=== PATIENT | male | born 1935 | race Caucasian/White ===

== ENCOUNTER 2020-04-25 05:28 | Outpatient (RCR) | payer MEDICARE ==
[~2020-04-25] VITALS: Ht 172.7 cm; Wt 67.3 kg
[~2020-04-25 05:28] MED LIST: BISA10EN RC; BTH10T PO; CELE50CA PO; DIAZ5TAB3 PO; ESZO2TAB31 PO; GABA300C PO; GBPN600T PO; HYDR-34 PO; HYDR-3817 PO; LOSA50TA63 PO; MULT-1056 PO; OLME20TA5; PANT40TA52 PO; SENN1TAB76 PO; SULF-222 PO; SULFA; TEMA30CA PO; TMSL.4C PO
== END 2020-04-25 09:25 | disposition home or self-care (01) ==
LOC: PREOP 05:28
PROVIDERS: ATTEND Internal Medicine
DX: Z01.812 Encounter for preprocedural laboratory examination (principal); Z20.828 Contact with and (suspected) exposure to other viral communicable diseases
CPT/HCPCS: 87635

== ENCOUNTER 2020-04-27 08:59 | Day surgery (SDC) | payer MEDICARE ==
--- NOTE | 2020-04-24 11:33 | HISTORY AND PHYSICAL ---
DATE OF SERVICE: EGD HISTORY AND PHYSICAL HISTORY OF PRESENT ILLNESS: The patient is an 84-year-old white male referred by Dr. Pollard due to persistent reflux sounding symptoms despite pantoprazole 40 mg q.a.m. daily. There has been a little improvement with recent increased to b.i.d., but he still reports some occasional pain on swallowing and some burning epigastric discomfort that radiates up into the chest. He rarely ever misses a dose. He has not had a previous EGD evaluation that he recalls. He predominantly reports afternoon and evening symptoms. He is not awaken at night with any burning or choking spells per his report. He reports that his weight has been stable. He has had no bowel habit change and has not noted any melena or bright red blood per rectum. PAST MEDICAL HISTORY: Significant for hypertension with no known history of pulmonary or vascular disease per his report. He has had history of significant generalized osteoarthritis that has led cervical and lumbar stenosis requiring a previous lumbar and cervical spine surgery. PAST SURGICAL HISTORY: In addition to lumbar and cervical spine surgery, he has had an appendectomy in the past, some abdominal hernia repair and rotator cuff tear repair. MEDICATIONS ON ADMISSION: Include hydrocodone 7.5/325 he takes usually twice daily, gabapentin 600 mg 3 times daily; pantoprazole recently increased from 40 mg daily to 40 mg twice daily. He sometimes takes an ldgy-oja-cqrvbqa sleep medication and is on losartan 50 mg daily. SOCIAL HISTORY: He reports rare alcohol consumption and no past smoking history. 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 FAMILY HISTORY: He is not aware of any family history for GI tract malignancy. REVIEW OF SYSTEMS: CONSTITUTIONAL: Denies weight change, night sweats, chills or fever. PULMONARY: Denies cough, chest congestion, wheezing or shortness of breath. CARDIOVASCULAR: Denies orthopnea, PND, pedal edema or dyspnea on exertion. GASTROINTESTINAL: As noted in the HPI. PHYSICAL EXAMINATION: GENERAL: Reveals a spry elderly white male who appeared to be in no acute distress. VITAL SIGNS: Weight 148.6 pounds, blood pressure 140/100 at the beginning of the interview, 130/88 at the end. HEENT: Unremarkable. Oral cavity reveals no evidence for erythema. CHEST: Clear to auscultation. CARDIOVASCULAR: Reveals a regular rate and rhythm without murmur, S3 or S4. ABDOMEN: Soft, supple. Mild epigastric discomfort to palpation is present without rebound or guarding. No mass or organomegaly is noted. No evidence for abdominal aortic aneurysm is noted to palpation. No bruits are appreciated. EXTREMITIES: Reveal no cyanosis, clubbing or edema. ASSESSMENT AND PLAN: For further investigation of refractory gastroesophageal reflux sounding symptoms, the patient is being set up for EGD evaluation. He is to abstain from nonsteroidal medications and aspirin, which he does not normally take. I thank you for the referral of this pleasant gentleman. Job ID: [id number] DocumentID: [id number] Dictated Date: 04/24/2020 11:02:10 Foam Caster Date: 04/24/2020 11:32:35 Dictated By: TOMMY IGLESIAS MD
[2020-04-27] VITALS (12 sets, daily range): BP systolic 136–179; BP diastolic 71–93
[~2020-04-27] VITALS: Ht 172.7 cm; Wt 67.3 kg
[2020-04-27] MEDS ORDERED: D5 LR IV SOLUTION 1,000 ML IV ONE (09:15)
--- NOTE | 2020-04-27 09:22 | Pre-Op Note & Conscious Sedat ---
Pre-Operative Progress Note H&P Reviewed The H&P was reviewed, patient examined and no changes noted. Date H&P Reviewed: Apr 27, 2020 Time H&P Reviewed: 09:22 Conscious Sedation Pre-Proced ASA Score 2 For ASA 3 and 4: Consider anesthesia and medical clearance. Also, for patients with a history of failed moderate sedation consider anesthesia. Airway Lungs Heart ASA score ASA 1: a normal healthy patient ASA 2: a patient with a mild systemic disease (mid diabetes, controlled hypertension, obesity ASA 3: a patient with a severe systemic disease that limits activity (angina, COPD, prior Myocardial infarction) ASA 4: a patient with an incapacitating disease that is a constant threat to life (CHF, renal failure) ASA 5: a moribund patient not expected to survive 24 hrs. (ruptured aneurysm) ASA 6: a declared brain- patient whose organs are being harvested. For emergent operations, add the letter E after the classification Mallampati Classification Grade 2 Sedation Plan Analgesia, Amnesia, Plan communicated to team members, Discussed options with patient/fam, Discussed risks with patient/fam The patient is an appropriate candidate to undergo the planned procedure, sedation, and anesthesia. The patient immediately re-assessed prior to indication. TOMMY IGLESIAS MD Apr 27, 2020 09:22
[2020-04-27] MEDS ORDERED: D5 LR IV SOLUTION 1,000 ML IV STA (09:27)
[2020-04-27] MEDS ORDERED: MIDAZOLAM 5 MG/5 ML (VERSED) VIAL IV ONE (09:30)
[2020-04-27] MEDS ORDERED: fentaNYL INJECTION 100 MCG/2 ML AMP IVP ONE (09:30)
[2020-04-27] MEDS ORDERED: HURRICAINE EXT TUBE (BENZOCAINE) XX PRN (09:30)
[2020-04-27] MEDS ORDERED: LIDOCAINE JELLY 2% 6 ML SYRINGE ONE (09:53)
[2020-04-27] MEDS ORDERED: MIDAZOLAM 5 MG/5 ML (VERSED) VIAL ONE (09:53)
[2020-04-27] MEDS ORDERED: fentaNYL INJECTION 100 MCG/2 ML AMP ONE (09:53)
[2020-04-27] MEDS ORDERED: HURRICAINE EXT TUBE (BENZOCAINE) ONE (09:53)
--- NOTE | 2020-04-27 16:15 | OPERATIVE REPORT ---
DATE OF SERVICE: EGD SUMMARY INDICATION FOR THE PROCEDURE: EGD was performed for evaluation of the reflux symptoms refractory to proton pump inhibitor therapy. DESCRIPTION OF PROCEDURE: The endoscope was inserted in the oral cavity and under direct visualization, esophagus was intubated. The endoscope was passed down the esophagus through the stomach into the second portion of the duodenum. A careful inspection was made as the endoscope was withdrawn. The patient tolerated the procedure well. FINDINGS: The posterior pharynx, epiglottis, arytenoid aperture and true and false vocal folds were unremarkable to visual inspection. The proximal and mid esophagus were unremarkable. There is a small to medium size hiatal hernia present without evidence for erosive esophagitis or evidence for Forte's change. The cardia and fundus of the stomach were unremarkable. There was some antral erythema present without evidence for ulceration. The pylorus, the pyloric channel, the duodenal bulb and second portion of the duodenum were unremarkable with no evidence for peptic ulcer disease. ASSESSMENT: 1. Small moderate size hiatal hernia was present with no evidence for erosive esophagitis. 2. Antral erythema was present. A biopsy was obtained for histopathology and Helicobacter evaluation. The patient reports he is most troubled by belching in the shower for which air swallowing is most likely. As he does have a history of back pain and severe osteoarthritis, he was advised that he try bathing in place of showering and may look into a Jacuzzi tub. Thank you for the referral of this pleasant gentleman, reassured by today's findings. Job ID: [id number] DocumentID: [id number] Dictated Date: 04/27/2020 11:18:48 [employer] Date: 04/27/2020 16:13:49 Dictated By: TOMMY IGLESIAS MD [facility]
== END 2020-04-27 11:20 | disposition home or self-care (01) ==
LOC: ENDO 08:59
PROVIDERS: ATTEND Internal Medicine
DX: K29.50 Unspecified chronic gastritis without bleeding (principal); B96.81 Helicobacter pylori [H. pylori] as the cause of diseases classified elsewhere; K44.9 Diaphragmatic hernia without obstruction or gangrene; K21.9 Gastro-esophageal reflux disease without esophagitis; I10 Essential (primary) hypertension; M15.9 Polyosteoarthritis, unspecified; M48.02 Spinal stenosis, cervical region; M48.061 Spinal stenosis, lumbar region without neurogenic claudication; Z79.899 Other long term (current) drug therapy
CPT/HCPCS: 88305; 88342

== ENCOUNTER 2021-09-11 12:26 | Observation (INO) | payer MEDICARE ==
[~2021-09-11] VITALS: Ht 167.7 cm; Wt 65.9 kg
[2021-09-11] MEDS ORDERED: PATIENT MAY USE OWN MEDS, ALL PO SCH (13:00)
[2021-09-11] MEDS ORDERED: VANCOMYCIN INJECTION 0.1 MG in NS (IVPB) 250 ML IV SCH (13:00)
[2021-09-11] MEDS ORDERED: HYDROcodone/APAP 5 MG/325 MG (LORTAB) TAB PO PRN (13:00)
[2021-09-11] MEDS ORDERED: ONDANSETRON 4 MG/2 ML (SDV) Z0FRAN IV PRN (13:00)
[2021-09-11] MEDS ORDERED: CATHETER FLUSH 10 ML SYR IV PRN (13:15)
[2021-09-11] MEDS: MEROPENEM 1,000 MG in NS (IVPB) 100 ML IV SCH ×2 (13:32→21:09)
[2021-09-11] MEDS: ENOXAPARIN 40 MG/0.4 ML (LOVENOX) SYR SC SCH (13:33)
[2021-09-11] MEDS: NS IV 1000 ML 1,000 ML IV SCH ×2 (13:35→21:09)
[2021-09-11 13:38] LABS: BASOPHILS # (AUTO) 0.1 10^3/uL (0.0-0.1); BASOPHILS % (AUTO) 1 % (0-10); EOSINOPHILS # (AUTO) 0.4 10^3/uL (0.0-0.3); EOSINOPHILS % (AUTO) 3 % (0-10); HEMATOCRIT 42 % (40-54); HEMOGLOBIN 13.3 g/dL (13.3-17.7); LYMPHOCYTES # (AUTO) 0.5 10^3/uL (1.0-4.0); LYMPHOCYTES % (AUTO) 4 % (12-44); MEAN CORPUSCULAR HEMOGLOBIN 29 pg (25-34); MEAN CORPUSCULAR HGB CONC 32 g/dL (32-36); MEAN CORPUSCULAR VOLUME 92 fL (80-99); MEAN PLATELET VOLUME 9.4 fL (9.0-12.2); MONOCYTES # (AUTO) 1.5 10^3/uL (0.0-1.0); MONOCYTES % (AUTO) 12 % (0-12); NEUTROPHILS # (AUTO) 9.4 10^3/uL (1.8-7.8); NEUTROPHILS % (AUTO) 79 % (42-75); PLATELET COUNT 297 10^3/uL (130-400); WHITE BLOOD COUNT 11.8 10^3/uL (4.3-11.0)
[2021-09-11 14:03] LABS: ALBUMIN 3.4 GM/DL (3.2-4.5); BILIRUBIN,TOTAL 0.5 MG/DL (0.1-1.0); CALCIUM 8.8 MG/DL (8.5-10.1); CREATININE SERUM 0.91 MG/DL (0.60-1.30); TOTAL PROTEIN 6.4 GM/DL (6.4-8.2)
[2021-09-11 14:06] LABS: BAND NEUTROPHILS 5 %; LYMPHOCYTES % (MANUAL) 3 %; MONOCYTES % (MANUAL) 12 %; NEUTROPHILS % (MANUAL) 73 %
[2021-09-11 14:07] LABS: BASOPHILS % (MANUAL) 0 %; EOSINOPHILS % (MANUAL) 7 %; RBC MORPH NORMAL
[2021-09-11 14:12] LABS: ERYTHROCYTE SEDIMENTATION RATE 28 MM/HR (0-30)
[2021-09-11] MEDS: NS IV SCH ×2 (14:23→22:12)
[2021-09-11] MEDS: ACYCLOVIR IV SCH ×2 (14:23→22:12)
[2021-09-11] MEDS ORDERED: NAPR220T66 PO (14:56)
[2021-09-11] MEDS ORDERED: BACL10TA PO (14:56)
[2021-09-11] MEDS ORDERED: VANCOMYCIN 1250 MG/NS 250 ML IVPB IV NR ×2 (15:00)
[2021-09-11 16:00] VITALS: BP 190/91
[2021-09-11] MEDS ORDERED: HYDROcodone/APAP 7.5 MG/325 MG (LORTAB, LORCET PLUS) TABLET PO PRN (17:00)
[2021-09-11] MEDS ORDERED: BACLOFEN 10 MG (LIORESAL) TAB PO PRN (17:00)
[2021-09-11] MEDS ORDERED: amLODIPine 5 MG (NORVASC) TAB PO NR (17:00)
[2021-09-11] MEDS ORDERED: cloNIDine 0.1 MG (CATAPRES) TAB PO NR (17:00)
[2021-09-11 17:03] LABS: BILIRUBIN,URINE NEGATIVE (NEGATIVE); CLARITY,URINE CLEAR; COLOR,URINE YELLOW; GLUCOSE, URINE (UA) NEGATIVE (NEGATIVE); KETONES,URINE NEGATIVE (NEGATIVE); LEUKOCYTE ESTERASE ,URINE NEGATIVE (NEGATIVE); NITRITE,URINE NEGATIVE (NEGATIVE); PH,URINE 7.5 (5-9); PROTEIN,URINE NEGATIVE (NEGATIVE)
[2021-09-11 17:12] LABS: BACTERIA,URINE NEGATIVE /HPF; RBC,URINE RARE /HPF; WBC,URINE RARE /HPF
--- NOTE | 2021-09-11 17:44 | Diagnostic Imaging Report ---
INDICATION: Dyspnea. PA and lateral views of the chest are obtained. Comparison is made to study of 01/14/2009. FINDINGS: Heart size and pulmonary vascularity are within normal limits, and the lungs are clear, bilaterally. IMPRESSION: Unremarkable chest. Dictated by: Dictated on workstation # [id number]
[2021-09-11] MEDS ORDERED: diphenhydrAMINE 25 MG TAB (BENADRYL) PO PRN (17:45)
[2021-09-11] MEDS ORDERED: diphenhydrAMINE 25 MG TAB (BENADRYL) PO NR (18:00)
[2021-09-11 19:51] VITALS: BP_SYST 125; BP_SYST 175; BP_DIAS 92
[2021-09-11] MEDS: ESZOPICLONE 2 MG TAB PO SCH (21:03)
[2021-09-11] MEDS: HYDROcodone/APAP 7.5 MG/325 MG (LORTAB, LORCET PLUS) TABLET PO PRN (21:03)
[2021-09-11] MEDS: FAMOTIDINE 20 MG (PEPCID) TABLET PO SCH (21:05)
[2021-09-11] MEDS: GABAPENTIN 600 MG (NEURONTIN) TAB PO SCH (21:06)
[2021-09-11] MEDS: LOSARTAN 50 MG (COZAAR) TAB PO SCH (21:06)
[2021-09-11] MEDS: PANTOPRAZOLE 40 MG (PROTONIX) TAB PO SCH (21:08)
[2021-09-12 00:32] VITALS: BP 165/78
[2021-09-12 04:33] VITALS: BP 121/56
[2021-09-12] MEDS: MEROPENEM 1,000 MG in NS (IVPB) 100 ML IV SCH (05:57)
[2021-09-12] MEDS: ACYCLOVIR IV SCH ×3 (06:31→23:00)
[2021-09-12] MEDS: NS IV SCH ×3 (06:31→23:00)
--- NOTE | 2021-09-12 07:26 | History & Physical ---
MARI GALEAS 09/12/21 0726: History of Present Illness History of Present Illness Reason for visit/HPI Damion Henriquez is a 86y/o M with a PMH of HTN who presents with angioedema and skin lesions on scalp and left hand. Pt reports that he started to develop the lesions on his left hand about 6 days ago. Then 4 days ago he started to get them on his scalp. He was then seen in clinic 3 days ago because he started to develop a fever. States at that time he tested negative for Covid-19. Noticed no changes after that visit until yesterday when he started to develop swelling in his lips and forehead. Was seen in clinic again before being admitted to hospital. Pt reports that the swelling in his lips and forehead have improved since yesterday. Skin lesions he also believes are improving. Denies any pain from lesions or facial swelling. Has recently developed some swelling in his right hand and arm which he believes is from his IV. Denies any pain. Reports that his only medication change in the last few days was that he started using Afrin nasal spray due to sinus congestion. Denies trying any new foods, using any new laundry detergents, or soaps. Has never had any episodes like this in the past. Date of Admission Sep 11, 2021 at 12:33 Date Seen by a Provider: Sep 12, 2021 Time Seen by a Provider: 07:06 I consulted on this patient on 09/12/21 07:18 Attending Physician Jakub Pollard DO Admitting Physician Jakub Pollard DO Consult Allergies and Home Medications Allergies Coded Allergies: No Known Drug Allergies (Unverified , 01/14/09) Patient Home Medication List Home Medication List Reviewed: Yes Baclofen (Baclofen) 10 Mg Tablet, 10 MG PO TID PRN for MUSCLE SPASMS, (Reported) Entered as Reported by: KELSEY WEIR on 09/11/21 3446 Last Action: Continued Eszopiclone (Eszopiclone) 2 Mg Tablet, 2 MG PO HS, (Reported) Entered as Reported by: ASTRID SOLIS on 04/23/20 4318 Last Action: Converted Gabapentin (Gabapentin) 600 Mg Tablet, 600 MG PO TID, (Reported) Entered as Reported by: ASTRID SOLIS on 9/21/20 1528 Last Action: Continued Hydrocodone/Acetaminophen (Hydrocodone-Acetamin 7.5-325) 1 Each Tablet, 1 EACH PO Q8H PRN for PAIN-MODERATE (5-7), (Reported) Entered as Reported by: ASTRID SOLIS on 04/23/201527 Last Action: Continued Losartan Potassium (Losartan Potassium) 50 Mg Tablet, 50 MG PO HS, (Reported) Entered as Reported by: ASTRID SOLIS on 04/23/201527 Last Action: Continued Naproxen Sodium (Aleve) 220 Mg Tablet, 220-440 MG PO Q12H PRN for PAIN-MILD (1- 4), (Reported) Entered as Reported by: KELSEY WEIR on 09/11/21 1456 Last Action: Reviewed Pantoprazole Sodium (Pantoprazole Sodium) 40 Mg Tablet.dr, 40 MG PO BID, (Reported) Entered as Reported by: ASTRID SOLIS on 04/23/201527 Last Action: Continued Discontinued Medications Multivit-Min/FA/Lycopen/Lutein (Men 50 Plus Multivitamin Tab) 1 Each Tablet, 1 EACH PO DAILY, (Reported) Discontinued Reason: No Longer Taking Entered as Reported by: ASTRID SOLIS on 04/23/201527 Last Action: Discontinued Past Mhbkgob-Aozknd-Gdluhk Hx Patient Social History Marrital Status: Employed/Student: retired Tobacco Use?: No Use of E-Cig and/or Vaping dev: No Substance use?: No Alcohol Use?: No Pt feels they are or have been: No Immunizations Up To Date Date of Influenza Vaccine: Apr 11, 2021 First/Initial COVID19 Vaccinat: UTD Second COVID19 Vaccination Arjun: UNKNOWN DATE Tetanus Booster (TDap): Unknown Hepatitis A: No Hepatitis B: No Seasonal Allergies Seasonal Allergies: No Current Status Advance Directives: No Primary Language: [place]er Preferred Spoken Language: [place]er Past Medical History Hypertension Neuropathy Diverticulosis Arthritis, Chronic Back Pain Blood Disorders: No Review of Systems Constitutional: No chills, No dizziness, No fever EENTM: mouth swelling, nose congestion; No blurred vision, No double vision, No mouth pain Respiratory: No cough, No short of breath Cardiovascular: No chest pain; edema (right arm, hand, and lips) Gastrointestinal: No abdominal pain, No diarrhea, No nausea, No vomiting Genitourinary: decreased output, dysuria (slight) Musculoskeletal: No back pain, No muscle pain, No muscle weakness Skin: lesions Psychiatric/Neurological: Denies Headache, Denies Numbness, Denies Paresthesia, Denies Weakness Physical Exam Vital Signs Vital Signs - First Documented 09/11/21 09/11/21 13:30 16:00 Temp 37.4 Pulse 88 Resp 18 B/P (MAP) 190/91 (124) Pulse Ox 98 O2 Delivery Room Air Capillary Refill : Height, Weight, BMI Height: 5'8.00" Weight: 145lbs. 0.0oz. [id number]; 23.43 BMI Method:Stated General Appearance: No Apparent Distress, WD/WN Neck: Non Tender, Supple Respiratory: Lungs Clear, Normal Breath Sounds Cardiovascular: No Murmur, Tachycardia Gastrointestinal: Non Tender, Soft Extremity: No Calf Tenderness, No Pedal Edema, Swelling (right arm and hand, lips) Neurologic/Psychiatric: Alert, Oriented x3 Skin: Other (round, scabbing lesions on scalp and left hand. ) Lymphatic: No Adenopathy Assessment/Plan Assessment and Plan 1. Lesions on scalp and left hand- taking vancomycin, meripenem, and acyclovir. lesions have been cultured. Awaiting results of culture and HSV PCR 2. Edema- benedryl PRN 3.HTN- on Losartan QD and clonidine PRN 4.GERD- taking Protonix and pepcid 5.Neuropathy- using gabapentin and baclofen 6.DVT prophylaxis- continue Lovemavisx JAKUB POLLARD S DO 09/12/21 0535: Allergies and Home Medications Allergies Coded Allergies: No Known Drug Allergies (Unverified , 01/14/09) Patient Home Medication List Baclofen (Baclofen) 10 Mg Tablet, 10 MG PO TID PRN for MUSCLE SPASMS, (Reported) Entered as Reported by: KELSEY WIER on 09/11/21 3676 Last Action: Continued Eszopiclone (Eszopiclone) 2 Mg Tablet, 2 MG PO HS, (Reported) Entered as Reported by: ASTRID SOLIS on 04/23/20 1528 Last Action: Converted Gabapentin (Gabapentin) 600 Mg Tablet, 600 MG PO TID, (Reported) Entered as Reported by: ASTRID SOLIS on 04/23/201527 Last Action: Continued Hydrocodone/Acetaminophen (Hydrocodone-Acetamin 7.5-325) 1 Each Tablet, 1 EACH PO Q8H PRN for PAIN-MODERATE (5-7), (Reported) Entered as Reported by: ASTRID SOLIS on 04/23/201527 Last Action: Continued Losartan Potassium (Losartan Potassium) 50 Mg Tablet, 50 MG PO HS, (Reported) Entered as Reported by: ASTRID SOLIS on 04/23/201527 Last Action: Continued Naproxen Sodium (Aleve) 220 Mg Tablet, 220-440 MG PO Q12H PRN for PAIN-MILD (1- 4), (Reported) Entered as Reported by: KELSEY WEIR on 09/11/21 9196 Last Action: Reviewed Pantoprazole Sodium (Pantoprazole Sodium) 40 Mg Tablet.dr, 40 MG PO BID, (Reported) Entered as Reported by: ASTRID SOLIS on 04/23/201527 Last Action: Continued Discontinued Medications Multivit-Min/FA/Lycopen/Lutein (Men 50 Plus Multivitamin Tab) 1 Each Tablet, 1 EACH PO DAILY, (Reported) Discontinued Reason: No Longer Taking Entered as Reported by: ASTRID SOLIS on 04/23/201527 Last Action: Discontinued Assessment/Plan Admission Diagnosis Admission Status: Inpatient Order (span 2 midnights) Reason for Inpatient Admission: Patient will need at least 48hrs of IV abx while awaiting cultures Supervisory-Addendum Brief Verification & Attestation Participated in pt care: history, physical Personally performed: exam, history Care discussed with: Medical Student Procedures: n/a Results interpretation: Verified all documentation Patient seen and evaluated. Will continue vancomycin and stop meropenem. Will add solumedrol due to ongoing lip swelling. Right arm is swollen but appears to be from infiltrated IV. MARI GALEAS Sep 12, 2021 07:26 JAKUB POLLARD DO Sep 12, 2021 17:15
[2021-09-12 07:35] VITALS: BP 156/79
[2021-09-12] MEDS: NS IV 1000 ML 1,000 ML IV SCH ×2 (07:35→12:28)
[2021-09-12] MEDS: GABAPENTIN 600 MG (NEURONTIN) TAB PO SCH ×3 (08:55→20:19)
[2021-09-12] MEDS: PANTOPRAZOLE 40 MG (PROTONIX) TAB PO SCH ×2 (08:55→20:18)
[2021-09-12] MEDS: FAMOTIDINE 20 MG (PEPCID) TABLET PO SCH (08:56)
[2021-09-12] MEDS ORDERED: methylPREDNISolone 125 MG (Solu-MEDROL) VIAL IM ONE (09:00)
[2021-09-12] MEDS: LORATADINE (CLARITIN) 10 MG TAB PO SCH (09:46)
[2021-09-12 11:30] VITALS: BP 136/71
[2021-09-12] MEDS: methylPREDNISolone 40 MG/ML (Solu-MEDROL) VIAL IV SCH ×3 (12:31→23:00)
[2021-09-12] MEDS: ENOXAPARIN 40 MG/0.4 ML (LOVENOX) SYR SC SCH (12:31)
[2021-09-12] MEDS ORDERED: VANCOMYCIN 1 GM/NS 250 ML IVPB IV SCH ×2 (15:00)
[2021-09-12 15:57] VITALS: BP 146/74
[2021-09-12 19:30] VITALS: BP 178/97
[2021-09-12] MEDS: ESZOPICLONE 2 MG TAB PO SCH (20:18)
[2021-09-12] MEDS: LOSARTAN 50 MG (COZAAR) TAB PO SCH (20:19)
[2021-09-12] MEDS: HYDROcodone/APAP 7.5 MG/325 MG (LORTAB, LORCET PLUS) TABLET PO PRN (20:19)
[2021-09-13] VITALS: BP 163/78
[2021-09-13 04:00] VITALS: BP 162/78
[2021-09-13] MEDS: methylPREDNISolone 40 MG/ML (Solu-MEDROL) VIAL IV SCH (05:36)
[2021-09-13] MEDS: ACYCLOVIR IV SCH (05:37)
[2021-09-13] MEDS: NS IV SCH (05:37)
[2021-09-13 06:17] LABS: HEMATOCRIT 38 % (40-54); HEMOGLOBIN 12.2 g/dL (13.3-17.7); MEAN CORPUSCULAR HEMOGLOBIN 29 pg (25-34); MEAN CORPUSCULAR HGB CONC 32 g/dL (32-36); MEAN CORPUSCULAR VOLUME 92 fL (80-99); MEAN PLATELET VOLUME 9.4 fL (9.0-12.2); PLATELET COUNT 300 10^3/uL (130-400); WHITE BLOOD COUNT 12.9 10^3/uL (4.3-11.0)
[2021-09-13 06:40] LABS: CALCIUM 8.3 MG/DL (8.5-10.1); CREATININE SERUM 0.89 MG/DL (0.60-1.30); POTASSIUM 4.1 MMOL/L (3.6-5.0)
[2021-09-13] MEDS: NS IV 1000 ML 1,000 ML IV SCH (06:58)
--- NOTE | 2021-09-13 07:42 | Progress Note ---
Subjective Subjective Date Seen by Provider: Sep 13, 2021 Time Seen by Provider: 07:06 Pt is being seen for follow up pertaining to skin lesions, edema, HTN, and GERD. He reports that he is currently doing well. States that the swelling in his lips and right arm have decreased substantially. Lesions on scalp and left hand are not itchy or painful according to pt. Says that he would really like to go home today since he has a lot to do at home. Denies having any other issues when asked. Review of Systems General: No Chills, No Other (fever) HEENT: No Head Aches, No Visual Changes Pulmonary: No Dyspnea, No Cough Cardiovascular: No: Chest Pain, Palpitations Gastrointestinal: No: Nausea, Vomiting, Abdominal Pain Genitourinary: No Dysuria, No Frequency Musculoskeletal: No: shoulder pain, arm pain, back pain, leg pain Neurological: No: Weakness, Numbness Objective Exam Vital Signs Vital Signs Date Time Temp Pulse Resp B/P (MAP) Pulse Ox O2 Delivery O2 Flow Rate FiO2 09/13/21 04:00 36.4 73 18 162/78 (106) 93 Room Air 09/13/21 00:00 36.1 80 17 163/78 (106) 96 Room Air 09/12/21 20:49 36.7 09/12/21 20:15 Room Air 09/12/21 19:30 36.7 88 20 178/97 (124) 98 Room Air 09/12/21 15:57 36.7 81 20 146/74 (98) 96 Room Air 09/12/21 11:30 36.7 74 18 136/71 (92) 93 Room Air 09/12/21 08:00 Room Air I & O 09/13/21 07:00 Intake Total 3462 ml Output Total 401 ml Balance 3061 ml General Appearance: No Apparent Distress, WD/WN Neck: Non Tender, Supple Respiratory: Lungs Clear, Normal Breath Sounds Cardiovascular: Regular Rate, Rhythm, No Murmur, Tachycardia Gastrointestinal: Non Tender, Soft Extremity: No Calf Tenderness, No Pedal Edema, Swelling (minimal swelling in right arm and lips) Neurologic/Psychiatric: Alert, Oriented x3 Skin: Warm/Dry, Other (round, scabbing lesions on scalp and left hand. ) Lymphatic: No Adenopathy Results Lab Laboratory Tests 09/13/21 06:00: White Blood Count 12.9H, Red Blood Count 4.15L, Hemoglobin 12.2L, Hematocrit 38L , Mean Corpuscular Volume 92, Mean Corpuscular Hemoglobin 29, Mean Corpuscular Hemoglobin Concent 32, Red Cell Distribution Width 13.3, Platelet Count 300, Mean Platelet Volume 9.4, Sodium Level 143, Potassium Level 4.1, Chloride Level 113H, Carbon Dioxide Level 19L, Anion Gap 11, Blood Urea Nitrogen 20H, Creatinine 0.89, Estimat Glomerular Filtration Rate 84, BUN/Creatinine Ratio 22, Glucose Level 169H, Calcium Level 8.3L Microbiology 09/11/21 Gram Stain - Final, Resulted 09/11/21 Wound Culture - Preliminary, Resulted Staphylococcus aureus Streptococcus pyogenes Grp A 09/11/21 Blood Culture - Preliminary, Resulted No growth Assessment/Plan Assessment/Plan Admission Dx 1. Healing Lesions on scalp and left hand- taking vancomycin. Meripenem, and acyclovir have been stopped. lesions have been cultured. HSV PCR was negative. Wound culture showed rare staph aureus and moderate strep pyogenes growth. 2. Edema- benedryl PRN, methylprednisolone Q6H, and claritin QD 3.HTN- on Losartan QD and clonidine PRN 4.GERD- taking Protonix and pepcid 5.Neuropathy- using gabapentin and baclofen 6.DVT prophylaxis- continue Lovenox Admission Dx 1. Lesions on scalp and left hand- taking vancomycin, meripenem, and acyclovir. lesions have been cultured. Awaiting results of culture and HSV PCR 2. Edema- benedryl PRN 3.HTN- on Losartan QD and clonidine PRN 4.GERD- taking Protonix and pepcid 5.Neuropathy- using gabapentin and baclofen 6.DVT prophylaxis- continue Lovenox Clinical Quality Measures Admission Status Admission Dx 1. Lesions on scalp and left hand- taking vancomycin, meripenem, and acyclovir. lesions have been cultured. Awaiting results of culture and HSV PCR 2. Edema- benedryl PRN 3.HTN- on Losartan QD and clonidine PRN 4.GERD- taking Protonix and pepcid 5.Neuropathy- using gabapentin and baclofen 6.DVT prophylaxis- continue Lovenox Supervisory-Addendum Brief Verification & Attestation Participated in pt care: history, physical Personally performed: exam, history, supervision of care Care discussed with: Medical Student Procedures: n/a Results interpretation: Verified all documentation Patient seen and evaluated. Will DC home on oral antibiotics and prednisone. MARI GALEAS Sep 13, 2021 07:42 JAKUB EASLEY DO Sep 13, 2021 13:50
[2021-09-13 08:20] VITALS: BP 160/75
[2021-09-13] MEDS ORDERED: DIPH25TA27 PO (08:46)
[2021-09-13] MEDS ORDERED: PRD20T PO (08:46)
[2021-09-13] MEDS ORDERED: AMOX-358 PO (08:46)
[2021-09-13] MEDS ORDERED: FAMOTIDINE 20 MG (PEPCID) TABLET PO SCH (09:00)
[2021-09-13] MEDS: GABAPENTIN 600 MG (NEURONTIN) TAB PO SCH (09:04)
[2021-09-13] MEDS: PANTOPRAZOLE 40 MG (PROTONIX) TAB PO SCH (09:04)
[2021-09-13] MEDS: LORATADINE (CLARITIN) 10 MG TAB PO SCH (09:05)
[2021-09-13 09:17] VITALS: BP 160/75
[2021-09-13] MEDS ORDERED: TROUGH ORDER-PHARMACY XX NR (14:00)
--- NOTE | 2021-09-13 14:45 | Discharge Summary ---
Diagnosis/Chief Complaint Date of Admission Sep 11, 2021 at 12:33 Date of Discharge Sep 13, 2021 at 10:00 Discharge Date: Sep 13, 2021 Discharge Diagnosis 1. Skin Sores/Cellulitis with wound culture growing out Staph Aureus and Strep Pyogenes--home on oral Augmentin 2. Dermatitis with Facial Swelling--improved with benadryl and steroids 3. Hypertension--exacerbated by illness/steroids 4. Lumbar Spinal Stenosis with Chronic Pain--Uses hydrocodone routinely Discharge Summary Hospital Course Was the Problem List Reviewed?: Yes Hospital Course This is an 86 year old male admitted from my office with worsening sores to his arms/face and head. He had initially started with a sore on his left hand after noticing itchy blisters in that area. He then developed more sores on that left forearm as well as to his face and top of his head. He also started having lip and facial swelling and itching. There was concern about possible MRSA or some type of systemic virus causing ulcerative lesions so he was admitted and started on IV vancomycin, IV meropenem and IV zovirax. Laboratory did reveal an elevated WBC count as well as elevated CRP. Liver enzymes were normal and lactic acid was normal. By the second hospital day his sores were already less purulent so the meropenem was discontinued and he was continued on IV Vancomycin and zovirax. Wound culture came back with preliminary growing out Staph aureus and Strep pyogenes and his sores were crusting over with no surrounding erythem a. He was initially given benadryl and then started on solumedrol for his itching and facial swelling. By the day of discharge his viral titers were coming back negative and his itching and swelling were much better and he was feeling well so it was decided that he could be discharged to home on oral augmentin and a steroid taper and to use benadryl prn. His blood pressure was i ncreased during his hospital stay but this was felt to be exacerbated by his illness and steroids so he will monitor this at home. He will follow up with me in my office in 1 week and return to the emergency room if any further issues develop or worsen over the weekend. Labs Laboratory Tests 09/11/21 13:22: White Blood Count 11.8H, Neutrophils (%) (Auto) 79H, Lymphocytes (%) (Auto) 4L, Neutrophils # (Auto) 9.4H, Lymphocytes # (Auto) 0.5L, Monocytes # (Auto) 1.5H, Eosinophils # (Auto) 0.4H, Chloride Level 108H, Glucose Level 121H, C-Reactive Protein High Sensitivity 14.24H 09/11/21 14:30: Urine Specific [place] 1.015L 09/13/21 06:00: White Blood Count 12.9H, Chloride Level 113H, Glucose Level 169H, Red Blood Count 4.15L, Hemoglobin 12.2L, Hematocrit 38L, Carbon Dioxide Level 19L, Blood Urea Nitrogen 20H, Calcium Level 8.3L Procedures None. Discharge Physical Examination Allergies: Coded Allergies: No Known Drug Allergies (Unverified , 01/14/09) Vitals & I&Os Vital Signs Date Time Temp Pulse Resp B/P (MAP) Pulse Ox O2 Delivery O2 Flow Rate FiO2 09/13/21 09:17 36.0 70 18 160/75 94 Room Air General Appearance: Alert, Oriented X3, No Acute Distress HEENT: Other (lip swelling resolved) Respiratory: Clear to Auscultation Cardiovascular: Regular Rate Extremities: No Clubbing, No Cyanosis, No Edema Skin: Other (sores to left wrist and head scabbing over ) Psych/Mental Status: Mental Status NL, Mood NL Discharge Home Medications Reviewed and agree with Discharge Medication list on patient's Discharge Instruction sheet Instructions to Patient/Family Please see electronic discharge instructions given to patient. JAKUB EASLEY DO Sep 13, 2021 14:45
== END 2021-09-13 10:00 | disposition home or self-care (01) ==
LOC: 4TH 12:33
PROVIDERS: ADMIT Family Medicine; ATTEND Family Medicine
DX: L03.90 Cellulitis, unspecified (principal); L30.9 Dermatitis, unspecified; R22.0 Localized swelling, mass and lump, head; I10 Essential (primary) hypertension; M19.90 Unspecified osteoarthritis, unspecified site; M48.061 Spinal stenosis, lumbar region without neurogenic claudication; K21.9 Gastro-esophageal reflux disease without esophagitis; G62.9 Polyneuropathy, unspecified; G89.29 Other chronic pain; M54.9 Dorsalgia, unspecified; Z79.891 Long term (current) use of opiate analgesic; Z79.899 Other long term (current) drug therapy
CPT/HCPCS: 36415; 71046; 80048; 80053; 81000; 83605; 85007; 85027; 85652; 86141; 86695; 86696; 87040; 87070; 87077; 87186; 87205; G0378

== ENCOUNTER 2021-12-06 09:50 | Day surgery (SDC) | payer MEDICARE ==
[2021-12-06] VITALS (14 sets, daily range): BP systolic 103–149; BP diastolic 62–93
[~2021-12-06] VITALS: Ht 170.1 cm; Wt 65.1 kg
[~2021-12-06 09:50] MED LIST changes: +AMOX-358 PO; +BACL10TA PO; +DIPH25TA27 PO; +NAPR220T66 PO; +PRD20T PO
[2021-12-06] MEDS ORDERED: ASPIRIN 81 MG CHEW (CHILDREN'S ASA) PO ONE (10:00)
[2021-12-06] MEDS ORDERED: NITROGLYCERIN 0.4 MG SL TABS BTL 25'S SL PRN (10:00)
[2021-12-06 10:08] LABS: BASOPHILS % (AUTO) 0 % (0-10); EOSINOPHILS % (AUTO) 0 % (0-10); HEMATOCRIT 45 % (40-54); HEMOGLOBIN 14.5 g/dL (13.3-17.7); LYMPHOCYTES # (AUTO) 0.9 10^3/uL (1.0-4.0); LYMPHOCYTES % (AUTO) 10 % (12-44); MEAN CORPUSCULAR HEMOGLOBIN 28 pg (25-34); MEAN CORPUSCULAR HGB CONC 32 g/dL (32-36); MEAN CORPUSCULAR VOLUME 89 fL (80-99); MEAN PLATELET VOLUME 9.1 fL (9.0-12.2); MONOCYTES # (AUTO) 1.4 10^3/uL (0.0-1.0); MONOCYTES % (AUTO) 15 % (0-12); NEUTROPHILS # (AUTO) 7.3 10^3/uL (1.8-7.8); NEUTROPHILS % (AUTO) 75 % (42-75); PLATELET COUNT 322 10^3/uL (130-400); WHITE BLOOD COUNT 9.7 10^3/uL (4.3-11.0)
[2021-12-06 10:18] LABS: ALBUMIN 3.7 GM/DL (3.2-4.5)
[2021-12-06 10:19] LABS: POTASSIUM 4.1 MMOL/L (3.6-5.0)
[2021-12-06 10:20] LABS: CALCIUM 9.3 MG/DL (8.5-10.1)
[2021-12-06 10:21] LABS: TOTAL PROTEIN 7.4 GM/DL (6.4-8.2)
[2021-12-06] MEDS ORDERED: HEParin 1000 UNIT/ML (10ML VIAL) FOR BOLUS ONE (10:22)
[2021-12-06] MEDS ORDERED: fentaNYL INJ 100 MCG/2 ML AMP ONE (10:22)
[2021-12-06] MEDS ORDERED: VERAPAMIL 5 MG/2 ML (CALAN) VIAL IV ONE (10:22)
[2021-12-06] MEDS ORDERED: MIDAZOLAM 5 MG/5 ML (VERSED) VIAL ONE (10:22)
[2021-12-06] MEDS ORDERED: NITRO DRIP 25000 MCG/D5W 250 ML IV ONE (10:22)
[2021-12-06] MEDS ORDERED: HEParin (CATH LAB) 1,000 ML IV ONE (10:22)
[2021-12-06 10:23] LABS: BILIRUBIN,TOTAL 0.6 MG/DL (0.1-1.0)
[2021-12-06] MEDS ORDERED: LIDOCAINE 1% INJ 20 ML VIAL ONE (10:23)
[2021-12-06 10:25] LABS: CREATININE SERUM 1.14 MG/DL (0.60-1.30)
--- NOTE | 2021-12-06 10:26 | ED Chest Pain ---
General Chief Complaint: Chest Pain Stated Complaint: CHEST PAIN Nursing Triage Note: PT AMBULATORY TO ROOM. PT STATES HE HAD CHEST PAIN YESTERDAY AND LAST NIGHT THAT FELT LIKE A "PUNCHING IN THE MIDDLE OF THE CHEST." PT STATES HE ALSO HAD "A LOT OF INDIGESTION LAST NIGHT." PT STATES IT DOES NOT REALLY HURT AT THIS TIME, BUT FEELS "A LITTLE SORE." Source: patient History of Present Illness Date Seen by Provider: December 06, 2021 Time Seen by Provider: 09:50 Initial Comments PT ARRIVES VIA POV FROM HOME, WALKS IN ON HIS OWN. DROVE HIMSELF HERE C/O CHEST PAIN PAIN BEGAN ON THURSDAY AND WAS MILD, WAS "REALLY BAD" YESTERDAY ALL DAY, AND LAST NIGHT, IS STILL PRESENT THIS MORNING BUT NOT BAD--"JUST FEELS SORE" PAIN IS IN MIDDLE OF CHEST AND FEELS LIKE SOMEONE IS PUNCHING HIM IN THE CHEST STATES HE "HAD ALOT OF INDIGESTION LAST NIGHT" NO RADIATION OF PAIN NOTHING WORSENS OR IMPROVES PAIN NO SHORTNESS OF BREATH NO SWEATS NO PALPITATIONS NO DIZZINESS OR SYNCOPE NO SWELLING IN LEGS/FEET PT DENIES ANY HISTORY OF CARDIAC PROBLEMS, STATES HIS ONLY PROBLEM IS HTN. PT STATES HE HAS ALWAYS LIVED A HEALTHY LIFESTYLE--LIFETIME NON-SMOKER, NON- DRINKER. EATS HEALTHY AND HAS ALWAYS EXERCISED REGULARLY, AND HAD ROUTINE [facility] VISITS WITH HIS . PCP: DR. EASLEY Allergies and Home Medications Allergies Coded Allergies: No Known Drug Allergies (Unverified , 01/14/09) Patient Home Medication List Home Medication List Reviewed: Yes Cimetidine (Tagamet Hb) 200 Mg Tablet, 200 MG PO DAILY PRN for HEARTBURN, (Reported) Entered as Reported by: KELSEY WEIR on 12/06/21 1603 Last Action: Converted Eszopiclone (Eszopiclone) 2 Mg Tablet, 2 MG PO HS, (Reported) Entered as Reported by: ASTRID SOLIS on 04/23/201527 Last Action: Converted Gabapentin (Gabapentin) 600 Mg Tablet, 600 MG PO TID, (Reported) Entered as Reported by: ASTRID SOLIS on 04/23/201527 Last Action: Continued Hydrocodone/Acetaminophen (Hydrocodone-Acetamin 7.5-325) 1 Each Tablet, 1 EACH PO Q8H PRN for PAIN-MODERATE (5-7), (Reported) Entered as Reported by: ASTRID SOLIS on 04/23/201527 Last Action: Reviewed L.acidoph & Paracasei,B.lactis (Probiotic) 10 Billion Cell Capsule, 1 EACH PO DAILY, (Reported) Entered as Reported by: KELSEY WEIR on 12/06/211602 Last Action: Converted Losartan Potassium (Losartan Potassium) 50 Mg Tablet, 50 MG PO HS, (Reported) Entered as Reported by: ASTRID SOLIS on 04/23/201527 Last Action: Continued Melatonin (Melatonin) 5 Mg Tablet, 5 MG PO HS PRN for SLEEP, (Reported) Entered as Reported by: KELSEY WEIR on 12/06/211602 Last Action: Converted Multivitamin (Multivitamin) 1 Each Tablet, 1 EACH PO DAILY, (Reported) Entered as Reported by: KELSEY WEIR on 12/06/211602 Last Action: Converted Naproxen Sodium (Aleve) 220 Mg Tablet, 220-440 MG PO Q12H PRN for PAIN-MILD (1- 4), (Reported) Entered as Reported by: KELSEY WEIR on 09/11/211455 Last Action: Converted Pantoprazole Sodium (Pantoprazole Sodium) 40 Mg Tablet.dr, 40 MG PO BID, (Reported) Entered as Reported by: ASTRID SOLIS on 04/23/201527 Last Action: Continued Discontinued Medications Amoxicillin/Potassium Clav (Augmentin 875-125 Tablet) 1 Each Tablet, 1 EACH PO BID Discontinued Reason: No Longer Taking Prescribed by: JAKUB EASLEY on 09/13/21845 Last Action: Discontinued Baclofen (Baclofen) 10 Mg Tablet, 10 MG PO TID PRN for MUSCLE SPASMS, (Reported) Discontinued Reason: No Longer Taking Entered as Reported by: KELSEY WEIR on 09/11/211455 Last Action: Discontinued Diphenhydramine HCl (Banophen) 25 Mg Tablet, 25 MG PO Q6H PRN for ITCHING Discontinued Reason: No Longer Taking Prescribed by: JAKUB EASLEY on 09/13/21845 Last Action: Discontinued Prednisone (Prednisone) 20 Mg Tab, 20 MG PO BID Discontinued Reason: No Longer Taking Prescribed by: JAKUB EASLEY on 09/13/21 0846 Last Action: Discontinued Review of Systems Review of Systems Constitutional: no symptoms reported; No diaphoresis, No dizziness EENTM: No Symptoms Reported Respiratory: No Symptoms Reported; Denies Orthopnea, Denies Shortness of Air Cardiovascular: See HPI, Chest Pain; Denies Edema, Denies Lightheadedness, Denies Palpitations, Denies Syncope Gastrointestinal: No Symptoms Reported; Denies Abdominal Pain, Denies Nausea, Denies Vomiting Genitourinary: No Symptoms Reported Musculoskeletal: no symptoms reported; No back pain Skin: no symptoms reported Psychiatric/Neurological: No Symptoms Reported Endocrine: No Symptoms Reported Hematologic/Lymphatic: No Symptoms Reported Past Xmwjcig-Vmkufk-Gordoe Hx Patient Social History Tobacco Use?: No Use of E-Cig and/or Vaping dev: No Substance use?: No Alcohol Use?: No Pt feels they are or have been: No Immunizations Up To Date Influenza Vaccine Up-to-Date: Yes; Up-to-Date First/Initial COVID19 Vaccinat: UTD Second COVID19 Vaccination Arjun: UNKNOWN DATE Third COVID19 Vaccination Date: UNKNOWN DATE Seasonal Allergies Seasonal Allergies: No Past Medical History Surgeries: Yes (rotator cuff, hernia repair, cspine x2 ) Abdominal, Orthopedic Respiratory: No Cardiac: Yes Hypertension Neurological: Yes Neuropathy Reproductive Disorders: No Genitourinary: No Gastrointestinal: Yes Diverticulosis Musculoskeletal: Yes (BACK SX; C-SPINE SURGERY;ROTATOR CUFF) Degenerate Disk Disease, Arthritis, Chronic Back Pain Endocrine: No HEENT: No Cancer: No Psychosocial: No Integumentary: No Blood Disorders: No Physical Exam Vital Signs Vital Signs - First Documented 12/06/21 09:52 Temp 36.4 Pulse 112 Resp 19 B/P (MAP) 164/105 (124) Pulse Ox 97 Capillary Refill : Height, Weight, BMI Height: 5'8.00" Weight: 145lbs. 0.0oz. [id number]; 22.00 BMI Method:Stated General Appearance: No Apparent Distress, WD/WN, Other (DOES NOT APPEAR TO BE IN ANY DISCOMFORT OR DISTRESS) Neck: Normal Inspection; No Carotid Bruit, No JVD Respiratory: Chest Non Tender, Normal Breath Sounds, No Accessory Muscle Use, No Respiratory Distress Cardiovascular: Regular Rate, Rhythm, No Edema, No JVD, No Murmur, Normal P eripheral Pulses Gastrointestinal: No Pulsatile Mass, Non Tender, Soft Extremity: Normal Capillary Refill, Normal Inspection, Normal Range of Motion, Non Tender, No Calf Tenderness, No Pedal Edema Neurologic/Psychiatric: Alert, Oriented x3, No Motor/Sensory Deficits, Normal Mood/Affect, wood router II-XII Norm as Tested Skin: Normal Color, Warm/Dry Progress/Results/Core Measures Results/Orders Lab Results Laboratory Tests Test 12/06/21 09:54 Range/Units White Blood Count 9.7 4.3-11.0 10^3/uL Red Blood Count 5.13 4.30-5.52 10^6/uL Hemoglobin 14.5 13.3-17.7 g/dL Hematocrit 45 40-54 % Mean Corpuscular Volume 89 80-99 fL Mean Corpuscular Hemoglobin 28 25-34 pg Mean Corpuscular Hemoglobin Concent 32 32-36 g/dL Red Cell Distribution Width 14.3 10.0-14.5 % Platelet Count 322 130-400 10^3/uL Mean Platelet Volume 9.1 9.0-12.2 fL Immature Granulocyte % (Auto) 0 % Neutrophils (%) (Auto) 75 42-75 % Lymphocytes (%) (Auto) 10 L 12-44 % Monocytes (%) (Auto) 15 H 0-12 % Eosinophils (%) (Auto) 0 0-10 % Basophils (%) (Auto) 0 0-10 % Neutrophils # (Auto) 7.3 1.8-7.8 10^3/uL Lymphocytes # (Auto) 0.9 L 1.0-4.0 10^3/uL Monocytes # (Auto) 1.4 H 0.0-1.0 10^3/uL Eosinophils # (Auto) 0.0 0.0-0.3 10^3/uL Basophils # (Auto) 0.0 0.0-0.1 10^3/uL Immature Granulocyte # (Auto) 0.0 0.0-0.1 10^3/uL Prothrombin Time 13.9 12.2-14.7 SEC INR Comment 1.0 0.8-1.4 Activated Partial Thromboplast Time 32 24-35 SEC D-Dimer 0.54 H 0.00-0.49 UG/ML Sodium Level 139 135-145 MMOL/L Potassium Level 4.1 3.6-5.0 MMOL/L Chloride Level 104 98-107 MMOL/L Carbon Dioxide Level 23 21-32 MMOL/L Anion Gap 12 5-14 MMOL/L Blood Urea Nitrogen 16 7-18 MG/DL Creatinine 1.14 0.60-1.30 MG/DL Estimat Glomerular Filtration Rate 63 BUN/Creatinine Ratio 14 Glucose Level 136 H 70-105 MG/DL Calcium Level 9.3 8.5-10.1 MG/DL Corrected Calcium 9.5 8.5-10.1 MG/DL Magnesium Level 1.9 1.6-2.4 MG/DL Total Bilirubin 0.6 0.1-1.0 MG/DL Aspartate Amino Transf (AST/SGOT) 240 H 5-34 U/L Alanine Aminotransferase (ALT/SGPT) 43 0-55 U/L Alkaline Phosphatase 58 40-136 U/L Total Creatine Kinase 2218 H 30-200 U/L Creatine Kinase MB 226.3 *H <6.6 NG/ML Myoglobin 417.4 H 10.0-92.0 NG/ML Troponin I 30.735 *H <0.028 NG/ML B-Type Natriuretic Peptide 1067.5 H <100.0 PG/ML Total Protein 7.4 6.4-8.2 GM/DL Albumin 3.7 3.2-4.5 GM/DL Triglycerides Level 65 <150 MG/DL Cholesterol Level 158 < 200 MG/DL LDL Cholesterol Direct 115 1-129 MG/DL VLDL Cholesterol 13 5-40 MG/DL HDL Cholesterol 39 L 40-60 MG/DL Amylase Level 36 25-125 U/L Lipase 8 8-78 U/L My Orders Orders - MARCO GUALLPA DO Cbc With Automated Diff (12/06/21 09:51) Magnesium (12/06/21 09:51) Chest 1 View, Ap/Pa Only (12/06/21 09:51) Ekg Tracing (12/06/21 09:51) Comprehensive Metabolic Panel (12/06/21 09:51) Myoglobin Serum (12/06/21 09:51) Protime With Inr (12/06/21 09:51) Partial Thromboplastin Time (12/06/21 09:51) O2 (12/06/21 09:51) Monitor-Rhythm Ecg Trace Only (12/06/21 09:51) Ed Iv/Invasive Line Start (12/06/21 09:51) Creatine Kinase (12/06/21 09:51) Creatine Kinase Mb (12/06/21 09:51) Lipase (12/06/21 09:51) Amylase (12/06/21 09:51) Bnp [place] (12/06/21 09:51) Fibrin Degradation Products (12/06/21 09:51) Troponin I Maryam (12/06/21 09:51) Nitroglycerin 0.4 Mg Btl 25's (Nitrostat (12/06/21 10:00) Aspirin Chewable Tablet (Baby Aspirin Ch (12/06/21 10:00) Ua Culture If Indicated (12/06/21 10:14) Medications Given in ED Vital Signs/I&O 12/06/21 09:52 Temp 36.4 Pulse 112 Resp 19 B/P (MAP) 164/105 (124) Pulse Ox 97 Blood Pressure Mean: 124 Progress Progress Note : Progress Note GIVEN ASPIRIN NTG HELD PT STATES HE IS NOT HAVING PAIN AT THIS TIME. Initial ECG Impression Date: December 06, 2021 Initial ECG Impression Time: 09:59 Initial ECG Rate: 101 Initial ECG Rhythm: S.Tach Initial ECG Impression: Acute HI (ANTERIOR/LATERAL) Diagnostic Imaging Comments CXR--PER RADIOLOGIST REPORT AT 1037 FINDINGS: Heart size and pulmonary vascularity are within normal limits, and the lungs are clear, bilaterally. IMPRESSION: Unremarkable chest. Reviewed: Reviewed by Me Departure Communication (Admissions) 1002--SPOKE WITH DR. RIVERA,MUNITIONS WORKER, WILL BE DOWN TO SEE PT 1009--DR. RIVERA HERE TO SEE PT 1024--DRUG ENFORCEMENT AGENT TEAM IS HERE 1024--SPOKE WITH DR. EASLEY AND INFORMED HER OF PT'S CONDITION. SHE WILL SEE IN HOSPITAL IF ADMITTED. Impression Primary Impression: STEMI (ST elevation myocardial infarction) Additional Impression: HTN (hypertension) Disposition: ADMITTED INPATIENT (TO DRUG ENFORCEMENT AGENT) Condition: Stable Admissions Decision to Admit Reason: Admit from ER (General) (TO DRUG ENFORCEMENT AGENT) Decision to Admit/Date: December 06, 2021 Time/Decision to Admit Time: 10:02 Departure-Patient Inst. Referrals: JAKUB EASLEY DO (PCP/Family) Primary Care Physician MARCO GUALLPA DO December 06, 2021 10:26
[2021-12-06 10:27] LABS: MAGNESIUM 1.9 MG/DL (1.6-2.4)
--- NOTE | 2021-12-06 10:27 | Diagnostic Imaging Report ---
INDICATION: Chest pain EXAM: AP view of the chest is obtained. COMPARISON: 09/11/2021 FINDINGS: Heart size and pulmonary vascularity are within normal limits, and the lungs are clear, bilaterally. IMPRESSION: Unremarkable chest. Dictated by: Dictated on workstation # [id number]
[2021-12-06 10:28] LABS: PROTHROMBIN TIME PATIENT 13.9 SEC (12.2-14.7)
--- NOTE | 2021-12-06 10:28 | Pre-Op Note & Conscious Sedat ---
Pre-Operative Progress Note H&P Reviewed The H&P was reviewed, patient examined and no changes noted. Date H&P Reviewed: December 06, 2021 Time H&P Reviewed: 10:28 Pre-Op Diagnosis: Anterolateral STEMI Conscious Sedation Pre-Proced ASA Score 3 For ASA 3 and 4: Consider anesthesia and medical clearance. Also, for patients with a history of failed moderate sedation consider anesthesia. Airway Lungs Heart ASA score ASA 1: a normal healthy patient ASA 2: a patient with a mild systemic disease (mid diabetes, controlled hypertension, obesity ASA 3: a patient with a severe systemic disease that limits activity (angina, COPD, prior Myocardial infarction) ASA 4: a patient with an incapacitating disease that is a constant threat to life (CHF, renal failure) ASA 5: a moribund patient not expected to survive 24 hrs. (ruptured aneurysm) ASA 6: a declared brain- patient whose organs are being harvested. For emergent operations, add the letter E after the classification Mallampati Classification Grade 1 Sedation Plan Analgesia, Amnesia, Plan communicated to team members, Discussed options with patient/fam, Discussed risks with patient/fam The patient is an appropriate candidate to undergo the planned procedure, sedation, and anesthesia. The patient immediately re-assessed prior to indication. JULY RIVERA JR, MD December 06, 2021 10:28
--- NOTE | 2021-12-06 10:28 | Consultation-Cardiology ---
HPI-Cardiology Cardiology Consultation: Date of Consultation 12/06/21 Date of Admission 12/06/21 Attending Physician July Feliz Jr., MD Admitting Physician Jakub Pollard DO Consulting Physician JULY FELIZ JR, MD HPI: Time Seen by a Provider: :22 Chief Complaint: THIS IS A HISTORY AND PHYSICAL FOR ADMISSION Chief complaint: Chest pain. I had the pleasure of seeing Damion in the emergency room at [facility] in [place], [place] today. He is a very pleasant 86-year-old male with no known history of coronary artery disease. His only cardiac risk factor is h ypertension. He was in his usual state of good health until yesterday when he developed epigastric discomfort. He thought this was just indigestion. This was mild at first. Then later in the day this became more severe. He felt as though there was a sharp pain in his epigastric area that shot through to his back. He denies associated symptoms. He took a Tagamet and this seemed to help with the discomfort somewhat. He was able to sleep last night but did wake up a few times with chest discomfort. This morning when he woke up he still has some mild chest discomfort. He called his primary care provider's office who suggested he come to the emergency room for further evaluation. He drove to the emergency room and had an electrocardiogram which showed anterolateral ST elevation. At that time, a cardiology consultation was requested for consideration of emergency cardiac catheterization for a lateral STEMI. He does not recall ever having this sort of chest discomfort in the past. He is very physically active and exercises most days of the week. He exercised on Thursday and did not have any cardiac symptoms at all. He denies dyspnea, paroxysmal nocturnal dyspnea, orthopnea, palpitations, lightheadedness, syncope, or ankle edema. Certain portions of this document may have been dictated utilizing voice recognition technology. Inherent to this technology, typographical and gra mmatical errors may exist. As much as I am diligent to identify and correct these mistakes, some errors may remain in the document. Review of Systems-Cardiology Review of Systems Other comments Review of 10 organ systems is as per the history of present illness, otherwise negative. [id number]-Lmadtj Hx Patient Social History Marrital Status: Employed/Student: retired Smoking Status: Never a Smoker Have you traveled recently?: No Alcohol Use?: No Pt feels they are or have been: No Immunizations Up To Date Date of Influenza Vaccine: Apr 11, 2021 Past Medical History PMH As described under Assessment. Family Medical History Family Medical History: The patient does not know of any family history of premature coronary artery disease in first-degree relatives. Allergies and Home Medications Allergies Coded Allergies: No Known Drug Allergies (Unverified , 01/14/09) Patient Home Medication List Home Medication List Reviewed: Yes Amoxicillin/Potassium Clav (Augmentin 875-125 Tablet) 1 Each Tablet, 1 EACH PO BID Prescribed by: JAKUB POLLARD on 09/13/21 0846 Baclofen (Baclofen) 10 Mg Tablet, 10 MG PO TID PRN for MUSCLE SPASMS, (Reported) Entered as Reported by: KELSEY WEIR on 09/11/211455 Last Action: Last Taken Edited Diphenhydramine HCl (Banophen) 25 Mg Tablet, 25 MG PO Q6H PRN for ITCHING Prescribed by: JAKUB POLLARD on 09/13/2146 Eszopiclone (Eszopiclone) 2 Mg Tablet, 2 MG PO HS, (Reported) Entered as Reported by: ASTRID SOLIS on 04/23/201527 Last Action: Last Taken Edited Gabapentin (Gabapentin) 600 Mg Tablet, 600 MG PO TID, (Reported) Entered as Reported by: ASTRID SOLIS on 04/23/201527 Last Action: Last Taken Edited Hydrocodone/Acetaminophen (Hydrocodone-Acetamin 7.5-325) 1 Each Tablet, 1 EACH PO Q8H PRN for PAIN-MODERATE (5-7), (Reported) Entered as Reported by: ASTRID SOLIS on 04/23/201527 Last Action: Last Taken Edited Losartan Potassium (Losartan Potassium) 50 Mg Tablet, 50 MG PO HS, (Reported) Entered as Reported by: ASTRID SOLIS on 04/23/201527 Last Action: Last Taken Edited Naproxen Sodium (Aleve) 220 Mg Tablet, 220-440 MG PO Q12H PRN for PAIN-MILD (1- 4), (Reported) Entered as Reported by: KELSEY WEIR on 09/11/211455 Last Action: Last Taken Edited Pantoprazole Sodium (Pantoprazole Sodium) 40 Mg Tablet., 40 MG PO BID, (Reported) Entered as Reported by: ASTRID SOLIS on 04/23/20 1528 Last Action: Last Taken Edited Prednisone (Prednisone) 20 Mg Tab, 20 MG PO BID Prescribed by: JAKUB POLLARD on 09/13/21 0846 Exam Vital Signs Vital Signs Date Time Temp Pulse Resp B/P (MAP) Pulse Ox O2 Delivery O2 Flow Rate FiO2 12/06/21 14:00 98 23 125/79 (94) 93 Room Air 12/06/21 09:52 36.4 Physical Exam General: Alert. No acute distress. Well nourished and appears stated age. Eye: Extraocular movements are intact. Conjunctivae are clear. There are no xanthelasma. HENT: Normocephalic. Atraumatic. Carotid pulsations 2/2 without bruits. Neck: Jugular venous pressure does not appear elevated. No thyromegaly ap preciated. Respiratory: Lungs are clear to auscultation. Respirations are non-labored. Breath sounds are equal. Symmetrical chest wall expansion. Cardiovascular: Normal rate. Regular rhythm. No murmur. No gallop. Point of maximal impulse is not appear displaced. Good pulses equal in all extremities. No edema. Gastrointestinal: Soft. Normal bowel sounds. Skin: Skin turgor is normal. There is no pallor. Musculoskeletal: No kyphosis or scoliosis appreciated. Neurologic: Alert and oriented to person, place, time. Cranial nerves 3-12 appear grossly intact. The patient has good motor tone strength in the upper and lower extremities bilaterally. Psychiatric: Cooperative. Appropriate mood & affect. Labs Laboratory Tests Test 12/06/21 09:54 Range/Units White Blood Count 9.7 4.3-11.0 10^3/uL Red Blood Count 5.13 4.30-5.52 10^6/uL Hemoglobin 14.5 13.3-17.7 g/dL Hematocrit 45 40-54 % Mean Corpuscular Volume 89 80-99 fL Mean Corpuscular Hemoglobin 28 25-34 pg Mean Corpuscular Hemoglobin Concent 32 32-36 g/dL Red Cell Distribution Width 14.3 10.0-14.5 % Platelet Count 322 130-400 10^3/uL Mean Platelet Volume 9.1 9.0-12.2 fL Immature Granulocyte % (Auto) 0 % Neutrophils (%) (Auto) 75 42-75 % Lymphocytes (%) (Auto) 10 L 12-44 % Monocytes (%) (Auto) 15 H 0-12 % Eosinophils (%) (Auto) 0 0-10 % Basophils (%) (Auto) 0 0-10 % Neutrophils # (Auto) 7.3 1.8-7.8 10^3/uL Lymphocytes # (Auto) 0.9 L 1.0-4.0 10^3/uL Monocytes # (Auto) 1.4 H 0.0-1.0 10^3/uL Eosinophils # (Auto) 0.0 0.0-0.3 10^3/uL Basophils # (Auto) 0.0 0.0-0.1 10^3/uL Immature Granulocyte # (Auto) 0.0 0.0-0.1 10^3/uL Prothrombin Time 13.9 12.2-14.7 SEC INR Comment 1.0 0.8-1.4 Activated Partial Thromboplast Time 32 24-35 SEC D-Dimer 0.54 H 0.00-0.49 UG/ML Sodium Level 139 135-145 MMOL/L Potassium Level 4.1 3.6-5.0 MMOL/L Chloride Level 104 98-107 MMOL/L Carbon Dioxide Level 23 21-32 MMOL/L Anion Gap 12 5-14 MMOL/L Blood Urea Nitrogen 16 7-18 MG/DL Creatinine 1.14 0.60-1.30 MG/DL Estimat Glomerular Filtration Rate 63 BUN/Creatinine Ratio 14 Glucose Level 136 H 70-105 MG/DL Calcium Level 9.3 8.5-10.1 MG/DL Corrected Calcium 9.5 8.5-10.1 MG/DL Magnesium Level 1.9 1.6-2.4 MG/DL Total Bilirubin 0.6 0.1-1.0 MG/DL Aspartate Amino Transf (AST/SGOT) 240 H 5-34 U/L Alanine Aminotransferase (ALT/SGPT) 43 0-55 U/L Alkaline Phosphatase 58 40-136 U/L Total Creatine Kinase 2218 H 30-200 U/L Creatine Kinase MB 226.3 *H <6.6 NG/ML Myoglobin 417.4 H 10.0-92.0 NG/ML Troponin I 30.735 *H <0.028 NG/ML B-Type Natriuretic Peptide 1067.5 H <100.0 PG/ML Total Protein 7.4 6.4-8.2 GM/DL Albumin 3.7 3.2-4.5 GM/DL Triglycerides Level 65 <150 MG/DL Cholesterol Level 158 < 200 MG/DL LDL Cholesterol Direct 115 1-129 MG/DL VLDL Cholesterol 13 5-40 MG/DL HDL Cholesterol 39 L 40-60 MG/DL Amylase Level 36 25-125 U/L Lipase 8 8-78 U/L ECG Impression ECG Comment Sinus tachycardia at 101 beats per minutes with left atrial abnormality and anterolateral ST elevation. STEMI. Diagnosis/Problems Diagnosis/Problems (1) ST elevation myocardial infarction (STEMI) of anterolateral wall, initial episode of care Status: Acute Assessment & Plan: He appears to be suffering an acute anterolateral ST elevation myocardial infarction. Given his current clinical status, he is considered severely frail. I recommend further evaluation with emergency cardiac catheterization. I have explained the benefits and risks of the procedure to the patient and he is in agreement to proceed. He has been given aspirin in the emergency room. He will be started on ticagrelor, beta-jackie and intensive dose statin medication. I anticipate 2 overnights in the hospital. I will obtain an echocardiogram later today to assess his left vent ricular function. (2) Primary hypertension Assessment & Plan: He will be started on beta-jackie due to the acute myocardial infarction. If his blood pressure remains elevated, I will restart his losartan. (3) Gastroesophageal reflux disease without esophagitis Assessment & Plan: I will restart his pantoprazole. (4) Peripheral neuropathy Assessment & Plan: He has neuropathy due to chronic low back pain. I will resume his pain medication and gabapentin. JULY FELIZ JR, MD December 06, 2021 10:28
[2021-12-06] MEDS ORDERED: CATHETER FLUSH 10 ML SYR IV PRN (10:30)
[2021-12-06] MEDS ORDERED: NS IV 1000 ML 1,000 ML IV ONE (10:30)
[2021-12-06 10:57] LABS: CREATINE KINASE MB 226.3 NG/ML (<6.6)
[2021-12-06] MEDS ORDERED: TICAGRELOR 90 MG TABLET (BRILINTA) PO ONE (11:04)
--- NOTE | 2021-12-06 12:02 | Cardiac Cath Report ---
CARDIAC CATHETERIZATION DATE OF PROCEDURE: 12/06/2021 INDICATION: Anterolateral STEMI. HISTORY: The patient is a 86 year old male with no previously known history of coronary artery disease. His only cardiac risk factor is hypertension. He presented to the hospital with just under 24 hours of chest pain. His electrocardiogram showed anterolateral ST elevation. He still had ongoing chest pain. Therefore, he is now referred for further evaluation with an emergency cardiac catheterization. Given his current clinical status, he is considered severely frail. PROCEDURES PERFORMED: 1. Left heart catheterization with hemodynamic measurements. 2. Diagnostic beaver coronary angiography. 3. Drug-eluting stent placement to mid left anterior descending coronary artery. 4. Balloon angioplasty to first diagonal branch. No stent was placed in the diagonal branch. PROCEDURE DESCRIPTION: After informed consent and in the fasting state, left heart catheterization was performed through the right radial artery utilizing a 6 American system by percutaneous approach. A 5 American JR4 catheter was utilized to interrogate the left ventricle and right coronary artery. A 6 American CLS 3.5 guide catheter was utilized to interrogate the left coronary artery and for the percutaneous coronary intervention. All catheters were exchanged over a guidewire. Following the procedure, a vascular band was applied to the radial artery access site and the sheath was removed with good hemostasis. RESULTS: HEMODYNAMICS: The aortic pressure was 124/57 mmHg. The left ventricular pressure was 124/0 mmHg with a left ventricular end-diastolic pressure of 8 mmHg. There was no significant pressure gradient upon pullback across the aortic valve. CORONARY ANGIOGRAPHY: Left main coronary artery: Short and free of significant disease. Left anterior descending coronary artery: There was a 99% stenosis in the midsegment with BRAD-1 flow. This was the ischemia related vessel for the acute myocardial infarction. This formed a bifurcation lesion with a moderate sized first diagonal branch which contained an 80% stenosis proximally with BRAD-2 flow. The bifurcation had a Willett classification of 1, 1, 1. The apical portion of the left anterior descending coronary artery had a 99% stenosis with BRAD-1 flow but at this point in the vessel, it was approximately 1.5 mm in maximal diameter. Left circumflex coronary artery: There was a moderate sized first obtuse marginal branch which contained an 80% stenosis proximally with BRAD-3 flow. There was a much smaller second obtuse marginal branch which contained 2 sequential 99% stenoses with BRAD-1 flow. Right coronary artery: Dominant and free of significant disease. PERCUTANEOUS CORONARY INTERVENTION OF LEFT ANTERIOR DESCENDING CORONARY ARTERY: Percutaneous coronary intervention was carried out on the mid left anterior descending coronary artery through the 6 American CLS 3.5 guide catheter. The lesion was successfully crossed with a Whisper medium support guidewire. I subsequently performed coronary angioplasty with a 3 x 12 mm Trek balloon up to a pressure of 10 jaci for several inflations. Flow was then improved. I subsequently placed a Prowater guidewire into the first diagonal branch. I subsequently performed coronary angioplasty in the proximal segment of the diagonal branch with a 2.25 x 20 mm Trek balloon at a pressure of 8 jaci for several inflations. Flow was then improved. I then deployed a 4 x 18 mm drug- eluting Xience Skypoint stent in the mid left anterior descending coronary artery at a pressure of 16 jaci and jailing the diagonal branch. I then attempted to pass a 2.5 x 20 mm NC Trek balloon over the Prowater guidewire into the diagonal branch but the balloon would not pass. I changed this over to a 1.5 x 12 mm mini Trek balloon which also would not pass. At that point, I determined that the guidewire was most likely under the stent in the left anterior descending coronary artery. I withdrew the Prowater guidewire from the diagonal branch and advance a stent into the left anterior descending coronary artery. I then withdrew the Whisper medium support guidewire from the left anterior descending coronary artery and advanced this through the stent struts into the diagonal branch. I then advanced the 1.5 x 12 mm mini Trek balloon over the Whisper guidewire down into the diagonal branch and performed angioplasty at a pressure of 10 jaci. I then advanced the 2.5 x 20 mm NC Trek balloon into the first diagonal branch leaving the proximal segment inside the stent in the left anterior descending coronary artery. I then advanced a 4 x 12 mm NC Trek balloon into the left anterior descending coronary artery over the Prowater guidewire. I then performed kissing balloon angioplasty at 12 jaci in the diagonal branch and 16 jaci in the left anterior descending coronary artery. Following the intervention, there was 0% residual stenosis with BRAD-3 flow in the left anterior descending coronary artery and less than 20% residual stenosis with BRAD-3 flow in the first diagonal branch. IMPRESSION: 1. Normal left heart pressure. 2. There was a 99% stenosis in the mid segment of the left anterior descending coronary artery as outlined above. This was the ischemia related vessel for the acute myocardial infarction. There was also significant disease in the first diagonal branch and the apical portion of the left anterior descending coronary artery. 3. Status post complex drug-eluting stent placement to the mid left anterior descending coronary artery for a bifurcation lesion with a 4 x 18 mm Xience Skypoint stent with 0% residual stenosis and BRAD-3 flow. I also performed high-pressure kissing balloon inflation with a 4 mm balloon in the left anterior descending coronary artery and a 2.5 mm balloon in the first diagonal branch with less than 20% residual stenosis and BRAD-3 flow in the diagonal branch which is jailed by the stent in the left anterior descending coronary artery. 4. There is severe residual disease in the first and second obtuse marginal branches which may need to be addressed at a later point in time. 5. I will obtain an echocardiogram later today to assess his left ventricular systolic function. Certain portions of this document may have been dictated utilizing voice recognition technology. Inherent to this technology, typographical and grammatical errors may exist. As much as I am diligent to identify and correct these mistakes, some errors may remain in the document. JULY RIVERA JR, MD December 06, 2021 12:02
[2021-12-06] MEDS: NS IV 1000 ML 1,000 ML IV SCH ×2 (12:52→21:19)
[2021-12-06 14:30] LABS: TRIGLYCERIDES 65 MG/DL (<150); VLDL CHOLESTEROL 13 MG/DL (5-40)
[2021-12-06] MEDS ORDERED: clonazePAM 0.5 MG (KlonoPIN) TAB PO PRN (14:30)
[2021-12-06 14:35] LABS: CHOLESTEROL 158 MG/DL (< 200); HDL CHOLESTEROL 39 MG/DL (40-60)
[2021-12-06] MEDS: HYDROcodone/APAP 7.5 MG/325 MG (LORTAB, LORCET PLUS) TABLET PO PRN ×2 (14:39→22:38)
--- NOTE | 2021-12-06 15:13 | Tele-ICU Progress Note ---
Progress Note Video assessment done , Hemodynamically stable Available charting reviewed NO TELE-ICU CONSULT REQUESTED CONTINUE TO MONITOR PER USUAL TELE-ICU PROTOCOL No need for Tele-ICU interventions Plans as delineated by bedside physicians / consultants Focused Exam Height, Weight, BMI Height: 5'8.00" Weight: 145lbs. 0.0oz. [id number]; 22.00 BMI Method:Stated CAPRICE GALAN MD December 06, 2021 15:13
[2021-12-06] MEDS ORDERED: CIME200T86 PO (16:03)
[2021-12-06] MEDS ORDERED: MELA5TAB14 PO (16:03)
[2021-12-06] MEDS ORDERED: L.AC1CAP6 PO (16:03)
[2021-12-06] MEDS ORDERED: MULT-1136 PO (16:03)
[2021-12-06] MEDS ORDERED: NAPROXEN 250 MG (NAPROSYN) TABLET PO PRN (16:45)
[2021-12-06] MEDS ORDERED: CIMETIDINE 200 MG PO PRN (16:45)
[2021-12-06] MEDS ORDERED: NON-FORMULARY MEDICATION 1 EA EA (Naproxen Sodium (Aleve) 220 MG) PO PRN (16:45)
[2021-12-06] MEDS ORDERED: FAMOTIDINE 20 MG (PEPCID) TABLET PO PRN (16:45)
[2021-12-06] MEDS ORDERED: NON-FORMULARY MEDICATION 1 EA EA (Melatonin 5 MG) PO PRN (16:45)
[2021-12-06] MEDS ORDERED: ENOXAPARIN 40 MG/0.4 ML (LOVENOX) SYR SC SCH (17:00)
[2021-12-06] MEDS ORDERED: MELATONIN 10 MG TABLET PO PRN (17:00)
[2021-12-06] MEDS ORDERED: NON-FORMULARY MEDICATION 1 EA EA (Eszopiclone 2 MG) PO SCH (21:00)
[2021-12-06] MEDS ORDERED: LOSARTAN 50 MG (COZAAR) TAB PO SCH (21:00)
[2021-12-06] MEDS: ZOLPIDEM 5 MG (AMBIEN) TAB PO SCH (21:19)
[2021-12-06] MEDS: TICAGRELOR 90 MG TABLET (BRILINTA) PO SCH (21:24)
[2021-12-06] MEDS: GABAPENTIN 600 MG (NEURONTIN) TAB PO SCH (21:24)
[2021-12-06] MEDS: ROSUVASTATIN 20 MG (CRESTOR) TABLET PO SCH (21:24)
[2021-12-06] MEDS: PANTOPRAZOLE 40 MG (PROTONIX) TAB PO SCH (21:25)
[2021-12-07] VITALS (13 sets, daily range): BP systolic 84–136; BP diastolic 55–97
[2021-12-07] MEDS ORDERED: NS (IVPB) 250 ML IV ONE ×2 (04:00→11:15)
[2021-12-07] MEDS ORDERED: NS (IVPB) 250 ML ONE (04:01)
[2021-12-07] MEDS: NS IV 1000 ML 1,000 ML IV SCH ×2 (04:07→18:05)
[2021-12-07 04:43] LABS: BASOPHILS % (AUTO) 0 % (0-10); EOSINOPHILS # (AUTO) 0.1 10^3/uL (0.0-0.3); EOSINOPHILS % (AUTO) 1 % (0-10); HEMATOCRIT 40 % (40-54); HEMOGLOBIN 12.8 g/dL (13.3-17.7); LYMPHOCYTES # (AUTO) 1.4 10^3/uL (1.0-4.0); LYMPHOCYTES % (AUTO) 16 % (12-44); MEAN CORPUSCULAR HEMOGLOBIN 28 pg (25-34); MEAN CORPUSCULAR HGB CONC 32 g/dL (32-36); MEAN CORPUSCULAR VOLUME 88 fL (80-99); MEAN PLATELET VOLUME 9.8 fL (9.0-12.2); MONOCYTES % (AUTO) 22 % (0-12); NEUTROPHILS # (AUTO) 5.5 10^3/uL (1.8-7.8); NEUTROPHILS % (AUTO) 61 % (42-75); PLATELET COUNT 244 10^3/uL (130-400); WHITE BLOOD COUNT 9.1 10^3/uL (4.3-11.0)
[2021-12-07 04:55] LABS: CALCIUM 8.5 MG/DL (8.5-10.1)
[2021-12-07 04:59] LABS: CREATININE SERUM 1.2 MG/DL (0.60-1.30)
[2021-12-07 05:39] LABS: ANISOCYTOSIS SLIGHT; ATYPICAL LYMPHOCYTES 1 %; EOSINOPHILS % (MANUAL) 2 %; LYMPHOCYTES % (MANUAL) 14 %; MICROCYTOSIS SLIGHT; MONOCYTES % (MANUAL) 23 %; NEUTROPHILS % (MANUAL) 60 %; PLATELET CLUMPS SOME SEEN; POLYCHROMASIA SLIGHT
[2021-12-07] MEDS: MULTIVIT W/MINERALS TAB (THERAGRAN M) PO SCH (06:35)
[2021-12-07] MEDS: GABAPENTIN 600 MG (NEURONTIN) TAB PO SCH ×3 (07:36→21:22)
[2021-12-07] MEDS: LACTOBACILLUS ACIDOPHILUS (PROBIOTIC) CAPSULE PO SCH (07:36)
[2021-12-07] MEDS: TICAGRELOR 90 MG TABLET (BRILINTA) PO SCH (07:36)
[2021-12-07] MEDS: ASPIRIN E.C. 81 MG (ECOTRIN) TAB PO SCH (07:36)
[2021-12-07] MEDS: PANTOPRAZOLE 40 MG (PROTONIX) TAB PO SCH ×2 (07:37→21:22)
--- NOTE | 2021-12-07 07:47 | Diagnostic Imaging Report ---
EXAMINATION: Chest 1 view HISTORY: Anterolateral STEMI COMPARISON: 12/06/2021 FINDINGS: Heart size and pulmonary vasculature are normal. The lungs are clear without consolidation, pleural effusion, or pneumothorax. The osseous structures are intact. IMPRESSION: 1. No acute radiographic abnormality in the chest. Dictated by: Dictated on workstation # [id number]
[2021-12-07] MEDS ORDERED: AMIODARONE 200 MG (CORDARONE) TAB ONE (08:47)
[2021-12-07] MEDS ORDERED: APIXABAN 5 MG (ELIQUIS) TABLET ONE (08:47)
[2021-12-07] MEDS: APIXABAN 5 MG (ELIQUIS) TABLET PO SCH ×2 (08:51→21:23)
[2021-12-07] MEDS: AMIODARONE 200 MG (CORDARONE) TAB PO SCH ×2 (08:51→21:23)
[2021-12-07] MEDS ORDERED: NON-FORMULARY MEDICATION 1 EA EA (L.acidoph & Paracasei,B.lactis (Probiotic) 1 EACH) PO SCH (09:00)
[2021-12-07] MEDS ORDERED: LOSARTAN 50 MG (COZAAR) TAB PO SCH (09:00)
[2021-12-07] MEDS ORDERED: NON-FORMULARY MEDICATION 1 EA EA (Multivitamin 1 EACH) PO SCH (09:00)
--- NOTE | 2021-12-07 09:13 | Cardiology Progress Note ---
Progress Note-Cardiology Events since last exam Date Seen by Provider: December 07, 2021 Time Seen by Provider: 09:07 Events since last exam I am following him due to anterolateral STEMI that was treated with 1 drug-el uting stent to the mid left anterior descending coronary artery and balloon angioplasty to the first diagonal branch. Early this morning he went into atrial fibrillation with a rapid ventricular rate. He had some shortness of breath with this but denies any palpitations. His chest discomfort has resolved. He denies syncope or ankle edema. Certain portions of this document may have been dictated utilizing voice recognition technology. Inherent to this technology, typographical and grammatical errors may exist. As much as I am diligent to identify and correct these mistakes, some errors may remain in the document. Vitals Last set of Vitals Signs Vital Signs 12/07/21 07:43 Temp 37.2 Pulse 129 Resp 16 B/P (MAP) 109/82 (91) Pulse Ox 95 O2 Delivery Room Air Labs Labs Laboratory Tests 12/06/21 09:54 12/07/21 04:30 Exam Vital Signs Vital Signs Date Time Temp Pulse Resp B/P (MAP) Pulse Ox O2 Delivery O2 Flow Rate FiO2 12/07/21 07:43 37.2 129 16 109/82 (91) 95 Room Air Physical Exam General: Alert. No acute distress. Eye: No xanthelasma. HENT: Normocephalic. Neck: Jugular venous pressure does not appear elevated. Respiratory: Lungs are clear to auscultation. Respirations are non-labored. Breath sounds are equal. Symmetrical chest wall expansion. Cardiovascular: Tachycardia with irregular rhythm. No murmur. No gallop. No edema. Gastrointestinal: Soft. Normal bowel sounds. Skin: Warm. Dry. Neurologic: Alert and oriented to person, place, time. Cranial nerves 3-11 grossly intact. Psychiatric: Cooperative. Appropriate mood & affect. Labs Laboratory Tests Test 12/06/21 09:54 12/06/21 15:43 12/07/21 04:30 Range/Units White Blood Count 9.7 9.1 4.3-11.0 10^3/uL Red Blood Count 5.13 4.56 4.30-5.52 10^6/uL Hemoglobin 14.5 12.8 L 13.3-17.7 g/dL Hematocrit 45 40 40-54 % Mean Corpuscular Volume 89 88 80-99 fL Mean Corpuscular Hemoglobin 28 28 25-34 pg Mean Corpuscular Hemoglobin Concent 32 32 32-36 g/dL Red Cell Distribution Width 14.3 14.7 H 10.0-14.5 % Platelet Count 322 244 130-400 10^3/uL Mean Platelet Volume 9.1 9.8 9.0-12.2 fL Immature Granulocyte % (Auto) 0 0 % Neutrophils (%) (Auto) 75 61 42-75 % Lymphocytes (%) (Auto) 10 L 16 12-44 % Monocytes (%) (Auto) 15 H 22 H 0-12 % Eosinophils (%) (Auto) 0 1 0-10 % Basophils (%) (Auto) 0 0 0-10 % Neutrophils # (Auto) 7.3 5.5 1.8-7.8 10^3/uL Lymphocytes # (Auto) 0.9 L 1.4 1.0-4.0 10^3/uL Monocytes # (Auto) 1.4 H 2.0 H 0.0-1.0 10^3/uL Eosinophils # (Auto) 0.0 0.1 0.0-0.3 10^3/uL Basophils # (Auto) 0.0 0.0 0.0-0.1 10^3/uL Immature Granulocyte # (Auto) 0.0 0.0 0.0-0.1 10^3/uL Prothrombin Time 13.9 12.2-14.7 SEC INR Comment 1.0 0.8-1.4 Activated Partial Thromboplast Time 32 24-35 SEC D-Dimer 0.54 H 0.00-0.49 UG/ML Sodium Level 139 140 135-145 MMOL/L Potassium Level 4.1 4.0 3.6-5.0 MMOL/L Chloride Level 104 108 H 98-107 MMOL/L Carbon Dioxide Level 23 20 L 21-32 MMOL/L Anion Gap 12 12 5-14 MMOL/L Blood Urea Nitrogen 16 17 7-18 MG/DL Creatinine 1.14 1.20 0.60-1.30 MG/DL Estimat Glomerular Filtration Rate 63 59 BUN/Creatinine Ratio 14 14 Glucose Level 136 H 101 70-105 MG/DL Calcium Level 9.3 8.5 8.5-10.1 MG/DL Corrected Calcium 9.5 8.5-10.1 MG/DL Magnesium Level 1.9 1.6-2.4 MG/DL Total Bilirubin 0.6 0.1-1.0 MG/DL Aspartate Amino Transf (AST/SGOT) 240 H 5-34 U/L Alanine Aminotransferase (ALT/SGPT) 43 0-55 U/L Alkaline Phosphatase 58 40-136 U/L Total Creatine Kinase 2218 H 30-200 U/L Creatine Kinase MB 226.3 *H <6.6 NG/ML Myoglobin 417.4 H 10.0-92.0 NG/ML Troponin I 30.735 *H 202.033 *H 72.156 *H <0.028 NG/ML B-Type Natriuretic Peptide 1067.5 H <100.0 PG/ML Total Protein 7.4 6.4-8.2 GM/DL Albumin 3.7 3.2-4.5 GM/DL Triglycerides Level 65 <150 MG/DL Cholesterol Level 158 < 200 MG/DL LDL Cholesterol Direct 115 1-129 MG/DL VLDL Cholesterol 13 5-40 MG/DL HDL Cholesterol 39 L 40-60 MG/DL Amylase Level 36 25-125 U/L Lipase 8 8-78 U/L Neutrophils % (Manual) 60 % Lymphocytes % (Manual) 14 % Monocytes % (Manual) 23 % Eosinophils % (Manual) 2 % Atypical Lymphocytes 1 % Clumped Platelets SOME SEEN Polychromasia SLIGHT Anisocytosis SLIGHT Microcytosis SLIGHT Thyroid Stimulating Hormone (TSH) 3.85 0.35-4.94 UIU/ML Diagnosis/Problems Diagnosis/Problems (1) ST elevation myocardial infarction (STEMI) of anterolateral wall, initial episode of care Status: Acute Assessment & Plan: This was due to subacute occlusion of the mid left anterior descending coronary artery that was treated with 1 drug-eluting stent. This was a bifurcation lesion and I also performed balloon angioplasty to the first diagonal branch. I initially placed him on aspirin and ticagrelor. However, now he is developed atrial fibrillation and will need oral anticoagulation. As such, I will change the ticagrelor over to clopidogrel. There is very little data about using ticagrelor when triple therapy is required. I will also start him on apixaban. I had started him on carvedilol but this caused hypotension. I will change this over to metoprolol succinate. We will continue intensive dose statin medication. His ejection fraction is normal. (2) Paroxysmal atrial fibrillation Status: Acute Assessment & Plan: This was most likely brought on by the acute myocardial infarction. I did order a TSH level to be added to previous labs. I will start him on amiodarone loading dose of 100 mg twice daily. I will start him on apixaban. If he remains in atrial fibrillation tomorrow morning, I will plan on a cardioversion prior to discharge. The amiodarone and apixaban may be short- term. (3) Primary hypertension Assessment & Plan: He has been having some low blood pressures. I have changed carvedilol to metoprolol succinate and I will stop the losartan which he was ta santosh at home. (4) Mixed hyperlipidemia Assessment & Plan: His LDL level was mildly elevated. He is now on intensive dose statin medication due to the acute myocardial infarction. (5) Gastroesophageal reflux disease without esophagitis Assessment & Plan: Continue pantoprazole. (6) Peripheral neuropathy Assessment & Plan: He has neuropathy due to chronic low back pain. Continue pain medication and gabapentin. JULY RIVERA JR, MD December 07, 2021 09:13
--- NOTE | 2021-12-07 09:45 | Tele-ICU Progress Note ---
Subjective Date Seen by a Provider: December 07, 2021 Time Seen by a Provider: 07:30 Subjective/Events-last exam This virtual visit was conducted using real time audio/video. Thank you for asking us to see this patient for following STEMI/stent. Recent events: Developed afib/RVR 12/07 at approx 0400. PMH:htn SH: smoking history: never FH: Non-contributory ROS: limited by patient's clinical condition, but PE: O2 sat 94% on RA. HEENT: No obvious masses, adenopathy or JVD. Chest: clear to auscultation. CV: Irreg [id number] afib. S1 S2 No murmur or added sounds. Abd: Non-tender. Bowel sounds Y. : Unremarkable. 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 No obvious focal findings. Extremities: No edema. Capillary refill < 3 seconds. Skin: unremarkable. Results: Elevated trop 72.156, decreased. CXR: clear. Available chart/ vitals / labs / images reviewed. Video assessment done using teleICU camera, rest of exam as per RN. A/P: Critical Care: critically ill patient. Cont.metoprolol, amiod., ASA, statin, PPI, eliquis, plavix. D/C pepcid as pt taking a PPI. Possible cardioversion later 12/07. Discussed with HANS Lanza. Asked RN to reach out to eICU if any questions or concerns later. Time spent with patient/coordination of care with other health professionals (mins):18. Sepsis Event Evaluation Height, Weight, BMI Height: 5'8.00" Weight: 145lbs. 0.0oz. [id number]; 22.63 BMI Method:Stated Exam Exam Patient acknowledged, consented, and participated in this virtual visit which was conducted using real time audio/video Vital Signs Date Time Temp Pulse Resp B/P (MAP) Pulse Ox O2 Delivery O2 Flow Rate FiO2 12/07/21 09:00 98 Room Air 12/07/21 07:43 37.2 129 16 109/82 (91) 95 Room Air 12/07/21 07:00 128 12/07/21 06:15 114 15 95/63 (74) 93 Room Air 12/07/21 05:00 111 9 93/55 (65) 94 Room Air 12/07/21 04:45 118 94/59 (81) 96 Room Air 12/07/21 04:30 128 16 96/73 (83) 96 Room Air 12/07/21 04:15 112 9 84/63 (70) 97 Room Air 12/07/21 04:00 128 25 94/65 (76) 95 Room Air 12/07/21 04:00 96 Room Air 12/07/21 03:40 37.3 122 14 94/64 (74) 96 Room Air 12/07/21 03:35 129 12/07/21 01:00 82 12/07/21 00:00 98 Room Air 12/06/21 23:25 38.0 89 16 103/62 (76) 97 Room Air 12/06/21 20:00 37.4 12/06/21 20:00 97 Room Air 12/06/21 20:00 97 25 127/65 (85) 97 Room Air 12/06/21 19:00 37.8 88 16 117/72 (87) 97 Room Air 12/06/21 19:00 93 12/06/21 18:00 86 16 116/70 (85) 97 Room Air 12/06/21 17:00 98 16 112/69 (83) 95 Room Air 12/06/21 16:00 93 19 110/63 (79) 96 Room Air 12/06/21 15:37 37.5 12/06/21 15:00 96 17 124/72 (89) 97 Room Air 12/06/21 14:00 98 23 125/79 (94) 93 Room Air 12/06/21 13:30 93 10 149/77 (101) 98 Room Air 12/06/21 13:15 93 19 131/93 (108) 99 Room Air 12/06/21 13:00 89 6 129/84 (94) 97 Room Air 12/06/21 12:45 84 13 130/83 (102) 99 Room Air 12/06/21 12:33 95 12/06/21 12:30 88 14 129/87 (106) 100 Room Air 12/06/21 12:15 92 22 127/85 (98) 97 Room Air 12/06/21 12:10 99 Room Air 12/06/21 09:52 36.4 112 19 164/105 (124) 97 I & O 12/07/21 07:00 Intake Total 625 ml Output Total 1300 ml Balance -675 ml Height & Weight Height: 5'8.00" Weight: 145lbs. 0.0oz. 65.039351ui; 22.63 BMI Method:Stated General Appearance: No Apparent Distress, WD/WN, Other (DOES NOT APPEAR TO BE IN ANY DISCOMFORT OR DISTRESS) Neck: Normal Inspection; No Carotid Bruit, No JVD Respiratory: Chest Non Tender, Normal Breath Sounds, No Accessory Muscle Use, No Respiratory Distress Cardiovascular: Regular Rate, Rhythm, No Edema, No JVD, No Murmur, Normal Peripheral Pulses Capillary Refill: Less Than 3 Seconds Extremity: Normal Capillary Refill, Normal Inspection, Normal Range of Motion, Non Tender, No Calf Tenderness, No Pedal Edema Neurologic/Psychiatric: Alert, Oriented x3, No Motor/Sensory Deficits, Normal 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 Critical Care: Critically Ill Patient BETO WEEMS MD December 07, 2021 09:45
[2021-12-07] MEDS ORDERED: HYDROcodone/APAP 7.5 MG/325 MG (LORTAB, LORCET PLUS) TABLET PO PRN (10:30)
[2021-12-07] MEDS ORDERED: CLOPIDOGREL 300 MG (PLAVIX) TABLET PO NR (18:00)
[2021-12-07] MEDS: ROSUVASTATIN 20 MG (CRESTOR) TABLET PO SCH (21:22)
[2021-12-07] MEDS: DOCUSATE SODIUM 100 MG (COLACE) CAP PO SCH (21:23)
[2021-12-07] MEDS: ZOLPIDEM 5 MG (AMBIEN) TAB PO SCH (21:36)
[2021-12-08] VITALS: BP 126/63
[2021-12-08 04:00] VITALS: BP 123/69
[2021-12-08] MEDS: MULTIVIT W/MINERALS TAB (THERAGRAN M) PO SCH (06:23)
[2021-12-08 08:00] VITALS: BP 151/90
[2021-12-08] MEDS ORDERED: RIVA20TA2 PO (08:22)
[2021-12-08] MEDS ORDERED: LOSA25TA41 PO (08:36)
[2021-12-08] MEDS ORDERED: CLOP75TA28 PO (08:36)
[2021-12-08] MEDS ORDERED: MTP25TSR PO (08:36)
[2021-12-08] MEDS ORDERED: ROSU20TA32 PO (08:36)
[2021-12-08] MEDS ORDERED: NITR0.4T42 SL (08:36)
[2021-12-08] MEDS ORDERED: AMIO200T65 PO (08:36)
[2021-12-08] MEDS ORDERED: ASPI-1238 PO (08:37)
--- NOTE | 2021-12-08 08:41 | Discharge Summary ---
Diagnosis/Chief Complaint Date of Admission 12/06/21 Date of Discharge 12/08/21 Discharge Date: December 08, 2021 Discharge Time: 09:00 Admission Diagnosis Admission Diagnosis Anterolateral STEMI Discharge Diagnosis 1. Anterolateral STEMI, initial episode of care. This was treated with 1 drug- eluting stent to the mid left anterior descending coronary artery. 2. Primary hypertension. 3. Mixed hyperlipidemia. 4. Paroxysmal atrial fibrillation, most likely due to #1. Resolved with oral amiodarone. 5. Gastroesophageal reflux disease. 6. Peripheral neuropathy due to chronic low back pain. 7. Chronic low back pain. Reason Hospital Visit Chest pain due to anterolateral STEMI. Discharge Summary Hospital Course Was the Problem List Reviewed?: Yes Hospital Course He presented to the hospital with just under 24 hours of chest pain. His electrocardiogram showed anterolateral ST elevation. A code STEMI was activated and he was taken for emergency cardiac catheterization. He was found to have high-grade stenosis of the mid left anterior descending coronary artery involving the first diagonal branch. This was a bifurcation lesion. This was treated with a drug-eluting stent to the mid left anterior descending coronary artery and high-pressure balloon angioplasty to the first diagonal branch. He also has residual disease in the left circumflex system. He underwent an echocardiogram that showed preserved left ventricular systolic function but with wall motion abnormalities consistent with a myocardial infarction. He then developed paroxysmal atrial fibrillation. He was started on amiodarone and apixaban. The atrial fibrillation resolved within 24 hours. He had no further chest discomfort. He had no signs of heart failure or ventricular arrhythmias. On the day of discharge, the apixaban was changed over to rivaroxaban due to lower cost. I initially placed him on ticagrelor due to the acute myocardial infarction but change this over to clopidogrel when he developed the atrial fibrillation. On the day of discharge, he was ambulating without any significant recurrent angina or shortness of breath. I have asked him to see me in the office in 1-2 weeks and then we can arrange for staged intervention to the left circumflex coronary system as an outpatient. Over 30 minutes was spent in direct [id number] contact with the patient in preparing this discharge summary. Labs Laboratory Tests 12/06/21 09:54: Lymphocytes (%) (Auto) 10L, Monocytes (%) (Auto) 15H, Lymphocytes # (Auto) 0.9L, Monocytes # (Auto) 1.4H, D-Dimer 0.54H, Glucose Level 136H, Aspartate Amino Transf (AST/SGOT) 240H, Total Creatine Kinase 2218H, Creatine Kinase MB 226.3*H, Myoglobin 417.4H, Troponin I 30.735*H, B-Type Natriuretic Peptide 1067.5H, HDL Cholesterol 39L 12/06/21 15:43: Troponin I 202.033*H 12/07/21 04:30: Monocytes (%) (Auto) 22H, Monocytes # (Auto) 2.0H, Troponin I 72.156*H, Hemoglobin 12.8L, Red Cell Distribution Width 14.7H, Chloride Level 108H, Carbon Dioxide Level 20L Procedures Cardiac catheterization and percutaneous coronary intervention. Echocardiogram. Discharge Physical Examination Allergies: Coded Allergies: No Known Drug Allergies (Unverified , 01/14/09) Vitals & I&Os Vital Signs Date Time Temp Pulse Resp B/P (MAP) Pulse Ox O2 Delivery O2 Flow Rate FiO2 12/08/21 09:08 98 Room Air 12/08/21 08:00 73 27 151/90 (110) 12/08/21 04:03 37.0 General Appearance: Alert, Oriented X3, Cooperative, No Acute Distress HEENT: Atraumatic, EOMI, Mucous Memb Moist/[place] Respiratory: Clear to Auscultation, Normal Air Movement Cardiovascular: Regular Rate, Normal S1, Normal S2, No Murmurs Abdominal: Normal Bowel Sounds, Soft, No Tenderness Extremities: No Clubbing, No Cyanosis, No Edema, Normal Pulses, No Tenderness/Swelling Skin: No Rashes, No Breakdown, No Significant Lesion Neuro: Normal Speech, Strength at 5/5 X4 Ext, Normal Tone, Cranial Nerves 3-12 NL Psych/Mental Status: Mental Status NL, Mood NL Discharge Home Medications Reviewed and agree with Discharge Medication list on patient's Discharge Instruction sheet Condition at Discharge Improved. Instructions to Patient/Family Please see electronic discharge instructions given to patient. Clinical Quality Measures End of Life/Advance Care Plan: Advance Care discuss with: patient Plan: initiate discussion Admission Status Admission Status: Inpatient Order (span 2 midnights) Reason for Inpatient Admission: Anterolateral STEMI. AMI/AHF: D/C Medications Addressed: Angiotension receptor jackie, Beta jackie ASA po Prior to arrival: Yes (80) DVT/VTE Risk/Contraindication: VTE Addressed: Yes VTE Present on Admission: No JULY RIVERA JR, MD December 08, 2021 08:41
[2021-12-08] MEDS: LACTOBACILLUS ACIDOPHILUS (PROBIOTIC) CAPSULE PO SCH (08:47)
[2021-12-08] MEDS: ASPIRIN E.C. 81 MG (ECOTRIN) TAB PO SCH (08:47)
[2021-12-08] MEDS: PANTOPRAZOLE 40 MG (PROTONIX) TAB PO SCH (08:47)
[2021-12-08] MEDS: GABAPENTIN 600 MG (NEURONTIN) TAB PO SCH (08:47)
[2021-12-08] MEDS: DOCUSATE SODIUM 100 MG (COLACE) CAP PO SCH ×2 (08:48→08:56)
[2021-12-08] MEDS ORDERED: LOSARTAN 25 MG (COZAAR) TAB PO SCH (09:00)
[2021-12-08] MEDS ORDERED: CLOPIDOGREL 75 MG (PLAVIX) TABLET PO SCH (09:00)
[2021-12-08] MEDS ORDERED: AMIODARONE 200 MG (CORDARONE) TAB PO SCH (09:00)
[2021-12-08] MEDS ORDERED: RIVAROXABAN 20 MG TABLET (XARELTO) PO SCH ×2 (17:00)
== END 2021-12-08 09:45 | disposition home or self-care (01) ==
LOC: EDUNIT# 09:50 → ER 09:51 → SDC 10:27 → ICU 12:10 → SDC 12-08 09:45
PROVIDERS: ATTEND Internal Medicine Cardiovascular Disease
DX: I21.09 ST elevation (STEMI) myocardial infarction involving other coronary artery of anterior wall (principal); I10 Essential (primary) hypertension; I48.0 Paroxysmal atrial fibrillation; K21.9 Gastro-esophageal reflux disease without esophagitis; G89.29 Other chronic pain; M54.50 Low back pain, unspecified; G62.9 Polyneuropathy, unspecified; I07.1 Rheumatic tricuspid insufficiency
CPT/HCPCS: 71045 ×2; 80048; 80053; 80061; 82150; 82550; 82553; 83690; 83735; 83874; 83880; 84443; 84484 ×2; 85007; 85025; 85027; 85379; 85610; 85730; 92920; 93005 ×3; 93041; 93306; 93458; 99285; C1725 ×5; C1769; C1874; C1894; C9606; 36415

== ENCOUNTER 2022-01-02 08:33 | Day surgery (SDC) | payer MEDICARE ==
[~2022-01-02] VITALS: Ht 170 cm; Wt 69.9 kg
[2022-01-02] VITALS (8 sets, daily range): BP systolic 133–162; BP diastolic 73–84
[~2022-01-02 08:33] MED LIST changes: +AMIO200T65 PO; +ASPI-1238 PO; +CIME200T86 PO; +CLOP75TA28 PO; +L.AC1CAP6 PO; +LOSA25TA41 PO; +MELA5TAB14 PO; +MTP25TSR PO; +MULT-1136 PO; +NITR0.4T42 SL; +RIVA20TA2 PO; +ROSU20TA32 PO
[2022-01-02] MEDS ORDERED: NS IV 1000 ML 1,000 ML ONE (08:35)
[2022-01-02] MEDS ORDERED: HEParin (CATH LAB) 2,000 ML IV ONE (08:35)
[2022-01-02] MEDS ORDERED: LIDOCAINE 1% INJ 20 ML VIAL ONE (08:35)
[2022-01-02] MEDS ORDERED: NS IV 1000 ML 1,000 ML IV ONE (08:45)
[2022-01-02] MEDS ORDERED: CATHETER FLUSH 10 ML SYR IV PRN (08:45)
[2022-01-02] MEDS ORDERED: ASPIRIN 81 MG CHEW (CHILDREN'S ASA) PO ONE (08:45)
[2022-01-02] MEDS ORDERED: MTP25TSR PO (09:20)
[2022-01-02] MEDS ORDERED: CLOP75TA28 PO (09:20)
[2022-01-02] MEDS ORDERED: LOSA25TA41 PO (09:20)
[2022-01-02] MEDS ORDERED: AMIO200T65 PO ×2 (09:20→11:07)
[2022-01-02] MEDS ORDERED: ROSU20TA32 PO (09:20)
[2022-01-02] MEDS ORDERED: CETI10TA17 PO (09:20)
[2022-01-02] MEDS ORDERED: NITR0.4T39 SL (09:20)
[2022-01-02] MEDS ORDERED: BACL10TA PO (09:20)
[2022-01-02] MEDS ORDERED: ASPI-1238 PO (09:20)
[2022-01-02] MEDS ORDERED: CIME200T90 PO (09:20)
[2022-01-02] MEDS ORDERED: RIVA20TA PO (09:20)
[2022-01-02] MEDS ORDERED: VERAPAMIL 5 MG/2 ML (CALAN) VIAL IV ONE (09:47)
[2022-01-02] MEDS ORDERED: MIDAZOLAM 5 MG/5 ML (VERSED) VIAL ONE (09:47)
[2022-01-02] MEDS ORDERED: HEParin 1000 UNIT/ML (10ML VIAL) FOR BOLUS ONE (09:47)
[2022-01-02] MEDS ORDERED: fentaNYL INJ 100 MCG/2 ML AMP ONE (09:47)
[2022-01-02] MEDS ORDERED: NS (IVPB) 250 ML ONE (09:47)
[2022-01-02] MEDS ORDERED: ADENOSINE 6 MG/2 ML (ADENOCARD) VIAL IV ONE (09:47)
[2022-01-02] MEDS ORDERED: NITRO DRIP 25000 MCG/D5W 250 ML IV ONE (09:48)
--- NOTE | 2022-01-02 09:49 | Pre-Op Note & Conscious Sedat ---
Pre-Operative Progress Note H&P Reviewed The H&P was reviewed, patient examined and no changes noted. Date H&P Reviewed: Jan 02, 2022 Time H&P Reviewed: 09:48 Pre-Op Diagnosis: Coronary artery disease without angina Conscious Sedation Pre-Proced ASA Score 2 For ASA 3 and 4: Consider anesthesia and medical clearance. Also, for patients with a history of failed moderate sedation consider anesthesia. Airway Lungs Heart ASA score ASA 1: a normal healthy patient ASA 2: a patient with a mild systemic disease (mid diabetes, controlled hypertension, obesity ASA 3: a patient with a severe systemic disease that limits activity (angina, COPD, prior Myocardial infarction) ASA 4: a patient with an incapacitating disease that is a constant threat to life (CHF, renal failure) ASA 5: a moribund patient not expected to survive 24 hrs. (ruptured aneurysm) ASA 6: a declared brain- patient whose organs are being harvested. For emergent operations, add the letter E after the classification Mallampati Classification Grade 2 Sedation Plan Analgesia, Amnesia, Plan communicated to team members, Discussed options with patient/fam, Discussed risks with patient/fam The patient is an appropriate candidate to undergo the planned procedure, sedation, and anesthesia. The patient immediately re-assessed prior to indication. JULY RIVERA JR, MD Jan 02, 2022 09:49
[2022-01-02] MEDS ORDERED: CLOPIDOGREL 300 MG (PLAVIX) TABLET PO ONE (10:32)
[2022-01-02] MEDS ORDERED: ASPIRIN 81 MG CHEW (CHILDREN'S ASA) ONE (10:32)
--- NOTE | 2022-01-02 11:12 | Cardiac Cath Report ---
CARDIAC CATHETERIZATION DATE OF PROCEDURE: 01/02/2022 INDICATION: Coronary artery disease without angina. HISTORY: The patient is a 86 year old male with a known history of coronary artery disease who suffered an anterior ST elevation myocardial infarction on 12/06/2021 that was treated with a drug-eluting stent to the mid left anterior descending coronary artery and angioplasty without stent to the first diagonal branch. He has residual disease in the first and second obtuse marginal branches. Due to the residual disease, he is now referred for further evaluation with a cardiac catheterization. He has no history of heart failure. Given his current clinical status, he is considered vulnerable. PROCEDURES PERFORMED: 1. Diagnostic king salmon coronary angiography. 2. Flow measurement of first obtuse marginal branch (left circumflex coronary artery). 3. Balloon angioplasty to the second obtuse marginal branch (left circumflex coronary artery). PROCEDURE DESCRIPTION: After informed consent and in the fasting state, left heart catheterization was performed through the right radial artery utilizing a 6 Turkish system by percutaneous approach. A 6 Turkish CLS 3 guide catheter was utilized for the procedure. The catheter was exchanged over a guidewire. Following the procedure, a vascular band was applied to the radial artery access site and the sheath was removed with good hemostasis. RESULTS: HEMODYNAMICS: Aortic pressure was 123/60 mmHg. The aortic valve was not crossed for hemodynamic measurements. CORONARY ANGIOGRAPHY: The left coronary artery was the only vessel studied. Left main coronary artery: Free of significant disease. Left anterior descending coronary artery: There was a stent in the mid segment which was widely patent with good distal runoff. There was a 99% stenosis in the apical portion of the vessel with BRAD II flow but this was approximately 1.5 mm in maximal diameter. There was a moderate sized first diagonal branch which was widely patent at the site of the previous angioplasty. Left circumflex coronary artery: There was a 70% stenosis in the first obtuse marginal branch with BRAD-3 flow. There were 2 sequential 90% stenoses followed by a 100% total occlusion in the second obtuse marginal branch with BRAD-0 flow beyond the total occlusion. FRACTIONAL FLOW RESERVE MEASUREMENT OF FIRST OBTUSE MARGINAL BRANCH: Fractional flow reserve measurement was carried out on The first obtuse marginal branch through a 6 Turkish CLS 3 guide catheter. The system was first equalized. The lesion was then successfully crossed with an FFR wire. 100 mcg of intracoronary adenosine was then administered. The minimum FFR was 0.92 which is not considered hemodynamically significant. No intervention was performed. ANGIOPLASTY OF SECOND OBTUSE MARGINAL BRANCH: I subsequently directed my attention to the second obtuse marginal branch and successfully crossed the stenoses with a whisper medium support guidewire. I subsequently performed coronary angioplasty with a 2 x 12 mm Mini-Trek balloon and a pressure of 6-8 jaci. Following angioplasty, there was 20% residual stenosis with BRAD-2 flow. The vessel appeared to be too small for stenting. IMPRESSION: 1. Normal central aortic pressure. 2. Patent stent in the mid left anterior descending coronary artery and patent angioplasty site of the proximal segment of the first diagonal branch. 3. Fractional flow reserve measurement of the 70% stenosis in the first obtuse marginal branch was nonsignificant at 0.92. No intervention was performed. 4. Status post plain old balloon angioplasty to the second obtuse marginal branch with 20% residual stenosis and BRAD-2 flow. This branch appeared to be too small for a stent. 5. The patient is known to have normal left ventricular systolic function with an estimated ejection fraction of 50-55% by echocardiogram performed on 12/06/2021. Certain portions of this document may have been dictated utilizing voice recognition technology. Inherent to this technology, typographical and grammatical errors may exist. As much as I am diligent to identify and correct these mistakes, some errors may remain in the document. JULY RIVERA JR, MD Jan 02, 2022 11:12
[2022-01-02] MEDS ORDERED: NS IV 1000 ML 1,000 ML IV SCH (11:15)
== END 2022-01-02 14:33 ==
LOC: CATH 08:33 → CSD 11:20 → CATH 14:33
PROVIDERS: ATTEND Internal Medicine Cardiovascular Disease
DX: I25.10 Atherosclerotic heart disease of native coronary artery without angina pectoris (principal); I48.0 Paroxysmal atrial fibrillation; I25.2 Old myocardial infarction; I10 Essential (primary) hypertension; E78.2 Mixed hyperlipidemia; K21.9 Gastro-esophageal reflux disease without esophagitis
CPT/HCPCS: 87081; 92920; 93454; 93571; C1725; C1769 ×2; C1887; C1894

== ENCOUNTER 2022-01-22 10:22 | Outpatient (CLI) | payer MEDICARE ==
[~2022-01-22] VITALS: Ht 170.2 cm; Wt 68.5 kg
[~2022-01-22 10:22] MED LIST changes: +CETI10TA17 PO; +CIME200T90 PO; +NITR0.4T39 SL; +RIVA20TA PO
[2022-01-22] MEDS ORDERED: AMIO200T65 PO (10:42)
== END 2022-01-22 10:44 | disposition home or self-care (01) ==
LOC: PREOP 10:22
PROVIDERS: ATTEND Internal Medicine
DX: Z01.818 Encounter for other preprocedural examination (principal)

== ENCOUNTER 2022-01-24 09:03 | Day surgery (SDC) | payer MEDICARE ==
--- NOTE | 2022-01-22 10:50 | HISTORY AND PHYSICAL ---
DATE OF SERVICE: COLONOSCOPY HISTORY AND PHYSICAL HISTORY OF PRESENT ILLNESS: The patient is an 86-year-old white male referred by Dr. Pollard for diagnostic colonoscopy. He reports he has noted some bright red blood per rectum. It has been painless. Since heart attack that he suffered on Mother's Day that did require apparent stenting as well as angioplasty and further complicated by paroxysmal atrial fibrillation. He has had to strain a little more the stool. He reports no melena. Denies indigestion, dysphagia, abdominal pain or change in weight. He reports he is back to exercising on a regular basis without chest discomfort, dyspnea on exertion, orthopnea, PND or pedal edema. He has had no palpitations, heart racing type symptoms, syncope or presyncope. Previously, he had not noted any issues with blood in his stool. He had undergone colonoscopy over 10 years ago that did not reveal evidence for neoplasia. PAST MEDICAL HISTORY: Other than stated above significant for hypertension; and osteoarthritis generalized. PAST SURGICAL HISTORY: He has had previous lumbar and cervical laminectomy and distant past history of appendectomy as well as abdominal hernia repair and rotator cuff tear repair. MEDICATIONS ON ADMISSION: Include Plavix and Xarelto 75 and 20 mg respectively, rosuvastatin 20 mg daily, p.r.n. sublingual nitroglycerin, amiodarone 200 mg b.i.d., but he has been tapered off of this and again plan was also to discontinue his Xarelto in January if he had not had any recurrence. He is also on pantoprazole 40 mg, he usually takes one Aleve daily 220 mg and Hydrocodone 7.5/325 two to three daily for his chronic back pain, and gabapentin 600 mg 2 to 3 times daily. He is also on p.r.n. cimetidine 200 mg. 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 REVIEW OF SYSTEMS: As noted in the HPI. In addition, constitutionally he denies any night sweats, chills, fever, or change in weight. PHYSICAL EXAMINATION: GENERAL: Reveals a spry elderly white male in no acute distress. VITAL SIGNS: Blood pressure 126/82, heart rate 58 and regular. HEENT: Unremarkable. CHEST: Clear to auscultation. CARDIOVASCULAR: Reveals regular rate and rhythm without murmur, S3 or S4. ABDOMEN: Soft, supple without mass, organomegaly or tenderness. EXTREMITIES: Reveal no cyanosis, clubbing or edema. ASSESSMENT AND PLAN: For further investigation of bright red blood per rectum. The patient will be undergoing diagnostic colonoscopy. He is only 3 months out from stent placement, per his report, so we will continue his Plavix, but hold Xarelto for the next 48 hours and set the patient up for this Thursday. Considering his age, I would only consider polypectomy for concerning polyps, diminutive polyps will be left as risk of bleeding outweighs the potential benefit in an 86-year-old. In the interim, it was advised that he take MiraLax daily. He has only been doing this intermittently, reassured that it is safe for long-term bowel health if needed. We also discussed the fact that hydrocodone is the most likely instigator, although amiodarone may be contributing as well for which they are planning on likely discontinuing in the near future. Thank you for the referral of this pleasant gentleman. Electronic medical record was reviewed, and prep instructions were given, and questions answered. Job ID: [id number] DocumentID: [id number] Dictated Date: 01/22/2022 10:03:55 Care Consultant Date: 01/22/2022 10:30:43 Dictated By: TOMMY IGLESIAS MD [facility]
[~2022-01-24] VITALS: Ht 170 cm; Wt 68.5 kg
[2022-01-24] MEDS ORDERED: LACTATED RINGERS 1,000 ML IV STA (09:11)
[2022-01-24 09:30] VITALS: BP 168/92
--- NOTE | 2022-01-24 09:32 | Pre-Op Note & Conscious Sedat ---
Pre-Operative Progress Note H&P Reviewed The H&P was reviewed, patient examined and no changes noted. Date H&P Reviewed: Jan 24, 2022 Time H&P Reviewed: 09:32 Conscious Sedation Pre-Proced ASA Score 3 For ASA 3 and 4: Consider anesthesia and medical clearance. Also, for patients with a history of failed moderate sedation consider anesthesia. Airway Lungs Heart ASA score ASA 1: a normal healthy patient ASA 2: a patient with a mild systemic disease (mid diabetes, controlled hypertension, obesity ASA 3: a patient with a severe systemic disease that limits activity (angina, COPD, prior Myocardial infarction) ASA 4: a patient with an incapacitating disease that is a constant threat to life (CHF, renal failure) ASA 5: a moribund patient not expected to survive 24 hrs. (ruptured aneurysm) ASA 6: a declared brain- patient whose organs are being harvested. For emergent operations, add the letter E after the classification Mallampati Classification Grade 2 Sedation Plan Analgesia, Amnesia, Plan communicated to team members, Discussed options with patient/fam, Discussed risks with patient/fam The patient is an appropriate candidate to undergo the planned procedure, sedation, and anesthesia. The patient immediately re-assessed prior to indication. TOMMY IGLESIAS MD Jan 24, 2022 09:32
[2022-01-24] MEDS ORDERED: PROPOFOL INJECTION 50 ML IV ONE (09:39)
[2022-01-24 10:10] VITALS: BP 87/50
[2022-01-24 10:15] VITALS: BP 106/58
[2022-01-24 10:20] VITALS: BP 101/56
[2022-01-24 10:45] VITALS: BP 125/64
--- NOTE | 2022-01-24 11:49 | Anesthesia-General Post-Op ---
MAC Patient Condition Mental Status/LOC: Same as Preop Cardiovascular: Satisfactory Nausea/Vomiting: Absent Respiratory: Satisfactory Pain: Controlled Complications: Absent Post Op Complications Complications None Follow Up Care/Instructions Patient Instructions None needed. Anesthesiology Discharge Order Discharge Order Patient is doing well, no complaints, stable vital signs, no apparent adverse anesthesia problems. No complications reported per nursing. JOE CAR CRNA Jan 24, 2022 11:49
--- NOTE | 2022-01-24 17:31 | OPERATIVE REPORT ---
DATE OF SERVICE: COLONOSCOPY SUMMARY INDICATION FOR THE PROCEDURE: Rectal bleeding. DESCRIPTION OF PROCEDURE: The patient was placed in the left lateral decubitus position. Prior to undergoing colonoscopy, a digital rectal evaluation was performed. Anal sphincter tone was normal and the perianal reflexes intact. Prostate is mildly enlarged and anodular on digital inspection. No abnormalities were noted on digital inspection of anal canal or distal rectal vault. The colonoscope was then inserted into the rectum and under direct visualization advanced to cecum. The cecum was identified by identification of ileocecal valve and cecal strap. Photographic documentation was obtained. Quality of the prep was good. FINDINGS: There was no evidence for internal or external hemorrhoids and the rectum was unremarkable. No evidence for gross blood was noted on today's procedure. Moderate diverticular disease confined to the sigmoid colon was present without evidence for diverticulitis. No other sigmoid colonic abnormalities were appreciated. The descending colon, splenic flexure, transverse colon, hepatic flexure, ascending colon, and cecum were unremarkable. ASSESSMENT: Moderate diverticular disease confined to the sigmoid colon was present with otherwise normal colonoscopy to the cecum. Considering the patient's age and medical comorbidities, would not advocate future screening colonoscopy. I thank you for the referral of this pleasant gentleman. Job ID: [id number] DocumentID: [id number] Dictated Date: 01/24/2022 10:15:17 Staff Genetic Counselor Date: 01/24/2022 17:29:56 Dictated By: TOMMY IGLESIAS MD
== END 2022-01-24 10:56 | disposition home or self-care (01) ==
LOC: ENDO 09:03
PROVIDERS: ATTEND Internal Medicine
DX: K62.5 Hemorrhage of anus and rectum (principal); K57.30 Diverticulosis of large intestine without perforation or abscess without bleeding; N40.0 Benign prostatic hyperplasia without lower urinary tract symptoms; I25.10 Atherosclerotic heart disease of native coronary artery without angina pectoris; I48.0 Paroxysmal atrial fibrillation; I25.2 Old myocardial infarction; I10 Essential (primary) hypertension; E78.2 Mixed hyperlipidemia; K21.9 Gastro-esophageal reflux disease without esophagitis; Z79.899 Other long term (current) drug therapy

== ENCOUNTER → 2022-02-20 | Outpatient (CLI) | payer MEDICARE | LOC: CARD 13:00 | PROVIDERS: ATTEND Internal Medicine Cardiovascular Disease | DX: I48.0 Paroxysmal atrial fibrillation (principal) ==

== ENCOUNTER → 2022-09-29 | Outpatient (CLI) | payer MEDICARE ==
--- NOTE | 2022-09-29 16:10 | Diagnostic Imaging Report ---
INDICATION: Medial left upper arm pain. TECHNIQUE: Multiple real-time grayscale sonographic images were obtained of the soft tissues in the left upper extremity. CORRELATION STUDY: None. FINDINGS: Imaging performed of the left upper extremity at the area of concern demonstrates relatively normal-appearing soft tissue echotexture. No discrete solid or cystic mass lesion. No architectural distortion. IMPRESSION: 1. Unremarkable left upper extremity soft tissue ultrasound. Dictated by: Dictated on workstation # [id number]
== END ==
LOC: RAD 14:31
PROVIDERS: ATTEND Nurse Practitioner Family
DX: M79.622 Pain in left upper arm (principal)
CPT/HCPCS: 76881

== ENCOUNTER 2023-03-26 05:34 | Outpatient (CLI) | payer MEDICARE ==
[~2023-03-26] VITALS: Ht 170.2 cm; Wt 67.7 kg
[~2023-03-26 05:34] MED LIST changes: -ROSU20TA32 PO; +ROSU20TA73 PO
== END 2023-03-26 10:36 | disposition home or self-care (01) ==
LOC: PREOP 05:34
PROVIDERS: ATTEND Internal Medicine
DX: Z01.818 Encounter for other preprocedural examination (principal)

== ENCOUNTER 2023-04-03 09:28 | Day surgery (SDC) | payer MEDICARE ==
--- NOTE | 2023-03-25 17:09 | HISTORY AND PHYSICAL ---
EGD HISTORY AND PHYSICAL HISTORY OF PRESENT ILLNESS: The patient is an 87-year-old white male referred by Dr. Pollard for EGD evaluation. He has history of coronary artery disease and paroxysmal atrial fibrillation and had been on a baby aspirin and Xarelto daily. He was noted to have iron deficiency anemia and was started on iron therapy and stool for occult blood was obtained that was reportedly positive. He was not sure what his hemoglobin levels were. He does have a history of osteoarthritis and admitted that he had been taking Aleve of his own accord for the past several weeks until he discontinued on the advice of Dr. Pollard. Previous to iron therapy, he denies bright red blood per rectum or melena. He does report a past history of bleeding peptic ulcer disease about the hospitalization when he was in his 40s. On review of my records, he has undergone panendoscopy in 04/2020. He had no evidence for peptic ulcer disease. He did have chronic active gastritis and was positive for Helicobacter at which time he underwent therapy. PAST MEDICAL HISTORY: Significant for coronary artery disease with stent placement post non-ST segment elevation [place] around 12/2021. Currently, he is taking 20 mg of Xarelto daily and clopidogrel 75 mg daily. He has had no subsequent heart issues since his stent in December. Denies any heart failure symptoms. PHYSICAL EXAMINATION: GENERAL: Reveals a white male, appeared to be in no acute distress. VITAL SIGNS: Blood pressure 110/70, heart rate 70 and regular, weight 149 pounds, which is down 2 pounds from last office weight in 01/2022. HEENT: Sclerae nonicteric. No significant pallor noted. CHEST: Clear to auscultation. CARDIOVASCULAR: Reveals a regular rate and rhythm without significant murmur, S3, or S4. ABDOMEN: Soft, supple without mass, organomegaly, or tenderness. EXTREMITIES: Revealed no cyanosis, clubbing or edema. ASSESSMENT: For increased reflux symptoms predominantly belching in the evening with iron deficiency anemia and occult positive blood in stool and individual past history of peptic ulcer disease and H. pylori positivity, he is being set up for an EGD on 04/03. He will hold Plavix a week previous and Xarelto 48 hours prior to the test. I thank you for referral of this pleasant gentleman. Job ID: [id number] DocumentID: [id number] Dictated Date: 03/25/2023 16:44:53 Assignment Agent Date: 03/25/2023 17:07:00 Dictated By: TOMMY IGLESIAS MD [facility]
[~2023-04-03] VITALS: Ht 170 cm; Wt 67.7 kg
[2023-04-03] MEDS ORDERED: LACTATED RINGERS 1,000 ML 1,000 ML IV STA (09:40)
[2023-04-03] MEDS ORDERED: HURRICAINE EXT TUBE (BENZOCAINE) XX PRN (09:45)
--- NOTE | 2023-04-03 10:12 | Pre-Op Note & Conscious Sedat ---
Pre-Operative Progress Note Date H&P Reviewed: Apr 03, 2023 Time H&P Reviewed: 10:11 History & Physical: H&P Reviewed, Patient Examed, No changes noted Pre-Op Diagnosis: GI bleed Moderate Sedation PreProcedure ASA Score 2 Airway Lungs Heart ASA score ASA 1: a normal healthy patient ASA 2: a patient with a mild systemic disease (mid diabetes, controlled hypertension, obesity ASA 3: a patient with a severe systemic disease that limits activity (angina, COPD, prior Myocardial infarction) ASA 4: a patient with an incapacitating disease that is a constant threat to life (CHF, renal failure) ASA 5: a moribund patient not expected to survive 24 hrs. (ruptured aneurysm) ASA 6: a declared brain- patient whose organs are being harvested. For emergent operations, add the letter E after the classification Mallampati Classification Grade 2 Sedation Plan Analgesia, Amnesia, Plan communicated to team members, Discussed options with patient/fam, Discussed risks with patient/fam The patient is an appropriate candidate to undergo the planned procedure, sedation, and anesthesia. The patient immediately re-assessed prior to indication. TOMMY IGLESIAS MD Apr 03, 2023 10:12
[2023-04-03 10:18] VITALS: BP 172/77
[2023-04-03] MEDS ORDERED: proPOfol INJECTION 200 MG/20 ML VIAL IV ONE (10:53)
[2023-04-03 11:15] VITALS: BP 126/65
--- NOTE | 2023-04-03 11:20 | Progress Note-Post Operative ---
Post-Procedure Note Physician (s)/Project Manager Retail (s) Physician TOMMY IGLESIAS MD Pre-Procedure Diagnosis Pre-Procedure Diagnosis: GI bleed Post-Procedure Diagnosis Post-operative diagnosis: The patient was placed in the left lateral decubitus position. The endoscope was inserted into the oral cavity and under direct visualization the esophagus is intubated. The endoscope was passed down esophagus to stomach and second portion of the duodenum. A careful inspection was was made as the endoscope was withdrawn. Findings: The posterior pharynx epiglottis arytenoid aperture and true and false vocal folds were unremarkable the visual inspection. The proximal mid and distal esophagus were unremarkable with no evidence for erosive esophagitis the Z-line is distinct there is no evidence for Forte's change no evidence for hiatal hernia. The cardia the stomach is unremarkable. Present the greater curvature of the stomach was a small blush lesion compatible with an AVM it was cauterized and submitted for histopathology. They continue to do so and Endo Clip was deployed with cessation of bleeding. Antral erythema was present compatible with gastritis confined to the antrum biopsy for Helicobacter was obtained with no significant bleeding no evidence for ulceration was noted. The pylorus pyloric channel duodenal bulb and second portion of the duodenum were unremarkable with no further areas of angiodysplasia noted. There is no evidence for blood in the upper GI tract. Findings: 1 AVM was noted along the midportion of the greater curvature of the stomach was biopsied and ablated and Endo Clip was applied for hemorrhage control. 2. Findings compatible with antral gastritis were noted in an individual who has previously been H. pylori positive biopsies obtained and submitted for Helicobacter evaluation I will take the liberty of setting the patient up for treatment for H. pylori if it is confirmed. 3. Considering advanced age and relatively small stature/67 kg would consider lower dose Eliquis 2.5 twice daily to reduce bleeding risk. Patient had also been taking some [id number] Aleve as I recall he was advised to abstain from nonsteroidal medication utilizing Tylenol only if needed for pain. Sincerely Tommy Iglesias MD CC: TOMMY Conner MD Apr 03, 2023 11:20
[2023-04-03 11:25] VITALS: BP 126/56
[2023-04-03 11:40] VITALS: BP 126/56
--- NOTE | 2023-04-03 14:13 | Anesthesia-General Post-Op ---
MAC Patient Condition Mental Status/LOC: Same as Preop Cardiovascular: Satisfactory Nausea/Vomiting: Absent Respiratory: Satisfactory Pain: Controlled Complications: Absent Post Op Complications Complications None Follow Up Care/Instructions Patient Instructions None needed. Anesthesiology Discharge Order Discharge Order Patient is doing well, no complaints, stable vital signs, no apparent adverse anesthesia problems. No complications reported per nursing. BEKA MILLER CRNA Apr 03, 2023 14:13
== END 2023-04-03 11:58 | disposition home or self-care (01) ==
LOC: ENDO 09:28
PROVIDERS: ATTEND Internal Medicine
DX: K92.2 Gastrointestinal hemorrhage, unspecified (principal); Q27.39 Arteriovenous malformation, other site; K31.89 Other diseases of stomach and duodenum; K21.9 Gastro-esophageal reflux disease without esophagitis; D50.9 Iron deficiency anemia, unspecified; I48.0 Paroxysmal atrial fibrillation; M19.90 Unspecified osteoarthritis, unspecified site; Z79.82 Long term (current) use of aspirin; Z79.01 Long term (current) use of anticoagulants; Z79.899 Other long term (current) drug therapy; Z87.11 Personal history of peptic ulcer disease
CPT/HCPCS: 88305